=== PATIENT | male | born 1945 | race Caucasian/White ===

== ENCOUNTER 2021-03-28 08:46 | Outpatient (CLI) | payer OTHER, SELFPAY ==
--- NOTE | 2021-03-28 | US_ITS ---
WS: [id number] ULTRASOUND RENAL TECHNIQUE: Ultrasound examination of both kidneys. CLINICAL INFORMATION: CKD STAGE 3 COMPARISON: None. FINDINGS: RIGHT: Right kidney is normal in size and appearance. Echogenicity: Normal. Cortical thickness: 1.6 cm; Normal. Hydronephrosis: None. Perinephric fluid: None. Right kidney measures: 10.7 cm x 6.1 cm x 5.4 cm. LEFT: Left kidney is normal in size and appearance. Echogenicity: Normal. Cortical thickness: 1.6 cm; Normal. Hydronephrosis: None. Perinephric fluid: None. Left kidney measures: 11.4 cm x 6.1 cm x 5.7 cm. Normal visualized aorta. US/US renal BI* [id number] IMPRESSION: Normal renal ultrasound
== END 2021-03-28 08:47 | disposition home or self-care (01) ==
PROVIDERS: PCP Family Medicine; Visit Provider Registered Nurse
DX: N18.32 Chronic kidney disease, stage 3b (principal)
CPT/HCPCS: 76770

== ENCOUNTER 2021-10-03 06:27 | Outpatient (CLI) | payer OTHER, SELFPAY ==
--- NOTE | 2021-10-03 | USCV_ITS ---
Cody Dickerson Age: 75 Gender: M : 1945 Exam Date: 10/03/2021 07:07 Ordering Phys: Boubacar Carreon DO Technologist: GAYLA [place]am Location[place] [facility] [place]ication: LT THIGH CLAUDICATION WHEN WALKING MORE THAN ONE BLOCK X2 YEARS Risk Factors: NONE Previous Vascular Surgery: NONE RIGHT LEFT BP: 140.0 / BP: 142.0/ 0 0 Waveform Velocity (cm/s) Velocity (cm/s) Waveform Triphasic 136.9 Iliac Prox 144.7 Triphasic Triphasic 131.6 Iliac Mid 165.4 Triphasic Triphasic 131.6 Iliac Distal 165.4 Triphasic Triphasic 84.6 LINOLEUM PRINTER 109.2 Triphasic Triphasic 84.6 SFA Prox 100.3 Triphasic Triphasic SFA Mid Triphasic 85.4 118.3 Triphasic 56.5 SFA Dist 97.3 Triphasic Triphasic 63.1 POP 58.1 Triphasic Triphasic 119.6 CATERERS HELPER 88.9 Triphasic Triphasic 65.7 DPA 66.7 Triphasic 1.1 JUNG 1.1 FINDINGS Normal resting ABIs bilaterally Normal arterial Doppler waveforms bilaterally Near normal Doppler flow velocities bilaterally Intimal thickening and minimal plaques in the femoral and iliac arteries bilaterally CONCLUSIONS No evidence of any significant arterial obstruction, based on the above findings. Intimal thickening and minimal plaques in the iliac and femoral arteries bilaterally Dr Lydia Monsalve MD [facility] (Electronically Signed) Final Date: 03 October 2021 18:58 S
== END 2021-10-03 06:28 | disposition home or self-care (01) ==
LOC: RAD 06:29
PROVIDERS: PCP Family Medicine; Visit Provider Emergency Medicine Emergency Medical Services
DX: I73.9 Peripheral vascular disease, unspecified (principal)
CPT/HCPCS: 93925

== ENCOUNTER 2021-11-13 19:35 | Emergency (ER) | payer OTHER, MEDICARE, SELFPAY ==
[2021-11-13 19:36] VITALS: BP 160/79; PULSE 90; RESP 24; TEMP 36.4; O2SAT 90; BMI 33.9
--- NOTE | 2021-11-13 19:47 | CTR_ITS ---
PROCEDURE INFORMATION: Exam: CT Head Without Contrast Exam date and time: 11/13/2021 7:47 PM Age: 75 years old Clinical indication: Syncope and collapse; Patient HX: Near syncope; Additional info: Vertigo TECHNIQUE: Imaging protocol: Computed tomography of the head without contrast. Radiation optimization: All CT scans at this facility use at least one of these dose optimization techniques: automated exposure control; mA and/or kV adjustment per patient size (includes targeted exams where dose is matched to clinical indication); or iterative reconstruction. COMPARISON: No relevant prior studies available. RADIATION DOSE METRICS: Total DLP (mGy-cm): 944.43 FINDINGS: Brain: No hemorrhage. Mild diffuse cerebral atrophy. No significant white matter disease. No mass effect. Cerebral ventricles: No ventriculomegaly. Paranasal sinuses: Visualized sinuses are unremarkable. No fluid levels. Mastoid air cells: Visualized mastoid air cells are well aerated. Bones/joints: Unremarkable. No acute fracture. Soft tissues: Unremarkable. CT/CT head wo con* [id number] IMPRESSION: No acute intracranial abnormality.
--- NOTE | 2021-11-13 19:48 | XRR_ITS ---
PROCEDURE INFORMATION: Exam: XR Chest Exam date and time: 11/13/2021 7:48 PM Age: 75 years old Clinical indication: Shortness of breath; Additional info: SOB TECHNIQUE: Imaging protocol: XR of the chest. Views: 1 view. COMPARISON: No relevant prior studies available. FINDINGS: Lungs: Peripheral opacities within both lungs. Pleural spaces: Unremarkable. No pleural effusion. No pneumothorax. Heart/Mediastinum: Unremarkable. No cardiomegaly. Bones/joints: Unremarkable. XR/XR chest 1V portable [id number] IMPRESSION: Peripheral opacities within both lungs suspicious for multifocal pneumonia.
--- NOTE | 2021-11-13 19:48 | ECG_ITS ---
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 Measurements Intervals [place] Rate: 85 P: 54 IA: 120 QRS: 52 QRSD: 134 T: 21 QT: 390 QTc: 464 Interpretive Statements SINUS RHYTHM POSSIBLE LEFT ATRIAL ENLARGEMENT [-0.1mV P-WAVE IN V1/V2] RIGHT BUNDLE BRANCH BLOCK [120+ ms QRS DURATION, UPRIGHT V1, 40+ ms S IN I/aVL/V4/V5/V6] No previous ECG available for comparison Electronically Signed On 11-14-2021 5:35:07 MEN'S BASKETBALL COACH by Scarlet Tomlin M.D. [id number]
--- NOTE | 2021-11-13 19:51 | W.ED.SOB ---
HPI - SOB/Dyspnea General: Chief Complaint: Shortness of Breath/Dyspnea Stated Complaint: WEAKNESS/SYNCOPE Time Seen by Provider: 11/13/21 19:43 History of Present Illness: HPI Narrative: 75-year-old presents with shortness of breath and vertigo. States this started yesterday but got worse today. Denies any chest pain or headache. Denies any focal weakness numbness or tingling. Specifically reports sensation of objects spinning around him as well as shortness of breath and cough. Denies any lower extremity pain or swelling. Denies any recent head trauma or blood thinners. Review of Systems Narrative: - CONSTITUTIONAL: Denies weight loss, fever and chills. - HEENT: Denies changes in vision and hearing. - RESPIRATORY: As above - CV: Denies palpitations and CP. - GI: Denies abdominal pain, nausea, vomiting and diarrhea. - : Denies dysuria and urinary frequency. - MSK: Denies myalgia and joint pain. - SKIN: Denies rash and pruritus. - NEUROLOGICAL: As above - PSYCHIATRIC: Denies suicidal ideation Physical Exam Narrative: EXAM NARRATIVE: - GENERAL: Alert and oriented x 3. No acute distress. Well-nourished. - EYES: EOMI. Anicteric. - HENT: Atraumatic, no C-spine tenderness. Moist mucous membranes. No scleral icterus. No cervical lymphadenopathy. - LUNGS: Clear to auscultation bilaterally. No accessory muscle use. Equal lung sounds bilaterally. No respiratory distress. - CARDIOVASCULAR: Regular rate and rhythm. No murmur. No JVD. - ABDOMEN: Soft, non-tender and non-distended. Negative CVA tenderness bilaterally, no rebound or guarding, negative Chun sign. No palpable masses. - EXTREMITIES: No edema. Non-tender. - SKIN: No rashes or lesions. Warm. - NEUROLOGIC: No nystagmus, negative Leisa-Hallpike. No meningismus or focal neurological deficits. CN II-XII grossly intact. - PSYCHIATRIC: Cooperative. Appropriate mood and affect. Course Vital Signs: Vital signs: Vital Signs Temperature 97.6 F 11/13/21 19:36 Pulse Rate 85 11/13/21 19:52 Respiratory Rate 19 H 11/13/21 19:52 Blood Pressure 149/78 11/13/21 19:52 Pulse Oximetry 94 11/13/21 19:52 MDM - SOB/Dyspnea Medical Decision Making 75-year-old presents due to shortness of breath and headache. Nonfocal neurologic exam. He is COVID-19 positive which explains her symptoms. CT scan of the head does not reveal intracranial hemorrhage. D-dimer is elevated but CT of the chest does not show any signs of PE. He saturating well on room air. EKG and troponin do not reveal any sign of acute ischemia or other acute abnormality. Remainder of lab work is unremarkable. Imaging however does reveal signs of multifocal pneumonia. Prescription for azithromycin provided. At this time I believe patient would be safe for discharge and outpatient follow-up. Return precautions provided. Plan was reviewed with the patient who expressed understanding. Questions answered. Patient will follow up with PCP. Patient discharged in stable condition. Lab Data : 11/13/21 19:47 11/13/21 19:47 Labs/Radiology: Radiology Impressions Head CT 11/13/21 19:47 IMPRESSION: No acute intracranial abnormality. Chest X-Ray 11/13/21 19:48 IMPRESSION: Peripheral opacities within both lungs suspicious for multifocal pneumonia. Chest CTA 11/13/21 20:24 IMPRESSION: 1. Multifocal pneumonia. Findings are fairly typical for COVID-19 infection. Please correlate with clinical findings. 2. Bronchitis. 3. No evidence of pulmonary embolism. 4. Mild hilar and mediastinal adenopathy of uncertain significance. Laboratory Results WBC 8.1 10^3/uL (4.0-10.0) 11/13/21 19:47 RBC 5.13 10^6/uL (4.1-5.3) 11/13/21 19:47 Hgb 14.4 g/dL (11.7-16.6) 11/13/21 19:47 Hct 46.1 % (42.0-52.0) 11/13/21 19:47 MCV 89.9 fl (80-94) 11/13/21 19:47 MCH 28.1 pg (28.0-34.0) 11/13/21 19:47 MCHC 31.2 g/dL (30.0-36.0) 11/13/21 19:47 RDW 14.1 % (12.1-15.1) 11/13/21 19:47 Plt Count 376 10^3/cmm (130-400) 11/13/21 19:47 MPV 10.1 fL (7.4-10.4) 11/13/21 19:47 Neut % (Auto) 74.0 % 11/13/21 19:47 Lymph % (Auto) 12.5 % 11/13/21 19:47 [place] % (Auto) 6.2 % 11/13/21 19:47 Eos % (Auto) 3.7 % 11/13/21 19:47 Baso % (Auto) 0.7 % 11/13/21 19:47 Neut # (Auto) 5.95 10^3/uL (1.8-7.7) 11/13/21 19:47 Lymph # (Auto) 1.0 10^3/uL (0.8-4.8) 11/13/21 19:47 [place] # (Auto) 0.5 10^3/uL (0.2-0.9) 11/13/21 19:47 Eos # (Auto) 0.3 10^3/uL (0.0-0.8) 11/13/21 19:47 Baso # (Auto) 0.1 10^3/uL (0.0-0.1) 11/13/21 19:47 Nucleated RBC % (auto) 0 % 11/13/21 19:47 Nucleated RBCs # 0.0 /100WBC 11/13/21 19:47 D-Dimer 0.86 ug/mIFEU (0-0.59) H 11/13/21 19:47 Sodium 141 mmol/L (136-145) 11/13/21 19:47 Potassium 4.6 mmol/L (3.5-5.1) 11/13/21 19:47 Chloride 102 mmol/L (98-107) 11/13/21 19:47 Carbon Dioxide 24 mmol/L (22-29) 11/13/21 19:47 Anion Gap 19.6 (5-19) H 11/13/21 19:47 BUN 49 mg/dL (8-23) H 11/13/21 19:47 Creatinine 1.8 mg/dL (0.7-1.2) H 11/13/21 19:47 GFR Calculation Not Reportable 11/13/21 19:47 Glucose 104 mg/dL (65-115) 11/13/21 19:47 Calculated Osmolality 305 mOsm/kg (285-295) H 11/13/21 19:47 Calcium 9.7 mg/dL (8.5-10.5) 11/13/21 19:47 Total Bilirubin 0.5 mg/dL (0.15-1.2) 11/13/21 19:47 AST 89 U/L (0-40) H 11/13/21 19:47 ALT 99 U/L (0-41) H 11/13/21 19:47 Alkaline Phosphatase 118 IU/L (40-130) 11/13/21 19:47 Troponin T Baseline 21 ng/L (0-15) H 11/13/21 19:47 NT-Pro-B Natriuret Pep 304 pg/mL (0-450) 11/13/21 19:47 Total Protein 7.2 g/dL (6.6-8.7) 11/13/21 19:47 Albumin 4.1 g/dL (3.5-5.2) 11/13/21 19:47 Globulin 3.1 g/dL (1.3-4.6) 11/13/21 19:47 Urine Color Yellow (Yellow) 11/13/21 20:05 Urine Appearance Clear (CLEAR) 11/13/21 20:05 Urine pH 6 (5-7) 11/13/21 20:05 Ur Specific [place] 1.015 (1.005-1.030) 11/13/21 20:05 Urine Protein Neg (Negative) 11/13/21 20:05 Urine Glucose (UA) Norm (Normal) 11/13/21 20:05 Urine Ketones Negative (Negative) 11/13/21 20:05 Urine Blood Neg (Negative) 11/13/21 20:05 Urine Nitrate Negative (Negative) 11/13/21 20:05 Urine Bilirubin Neg (Negative) 11/13/21 20:05 Urine Urobilinogen 4 mg/dL (Negative) H 11/13/21 20:05 Ur Leukocyte Esterase Negative (Negative) 11/13/21 20:05 Urine RBC 0-4 /hpf (0-2) H 11/13/21 20:05 Urine WBC 0-4 /hpf (0-5) H 11/13/21 20:05 Ur Squamous Epith Cells 0-4 /hpf (0-5) H 11/13/21 20:05 Amorphous Sediment Not Reportable 11/13/21 20:05 Urine Bacteria Trace /hpf (NONE) 11/13/21 20:05 SARS-CoV-2 Ag (Rapid) Positive (Negative) H 11/13/21 20:23 Discharge Plan Discharge Patient Disposition: Home Clinical Impression: COVID-19 Condition: Stable Prescriptions: New azithromycin 500 mg tablet 500 mg PO DAILY 3 Days Qty: 3 0RF Discharge Orders: Discharge ED (Routine); Ordered 11/13/21 Ordered By: Sharath Zhang Referrals: Mamie Mcrae MD [Primary Care Provider] - Patient Instructions: COVID-19 (Coronavirus Disease 2019) (ED), Opioid Safety Coding Level of Care Code ED Call Center Operations Manager for Sada Pereira
[2021-11-13 19:52] VITALS: BP 149/78; PULSE 85; RESP 19; O2SAT 94
[2021-11-13 19:57] LABS: Basophils # 0.1 10^3/uL (0.0-0.1); Basophils % 0.7 %; Eosinophils # 0.3 10^3/uL (0.0-0.8); Eosinophils % 3.7 %; Hematocrit 46.1 % (42.0-52.0); Hemoglobin 14.4 g/dL (11.7-16.6); Lymphocytes % 12.5 %; Mean Corpuscular HGB Conc 31.2 g/dL (30.0-36.0); Mean Corpuscular Hemoglobin 28.1 pg (28.0-34.0); Mean Corpuscular Volume 89.9 fl (80-94); Mean Platelet Volume 10.1 fL (7.4-10.4); Monocytes # 0.5 10^3/uL (0.2-0.9); Monocytes % 6.2 %; Neutrophils # 5.95 10^3/uL (1.8-7.7); Nucleated Red Blood Cells % 0 %; Platelet Count 376 10^3/cmm (130-400); Red Blood Count 5.13 10^6/uL (4.1-5.3); Red Cell Distribution Width 14.1 % (12.1-15.1); White Blood Count 8.1 10^3/uL (4.0-10.0)
[2021-11-13 20:14] LABS: D Dimer 0.86 ug/mIFEU (0-0.59)
--- NOTE | 2021-11-13 20:24 | CTR_ITS ---
PROCEDURE INFORMATION: Exam: CTA Chest With Contrast Exam date and time: 11/13/2021 8:24 PM Age: 75 years old Clinical indication: Abnormal findings; Abnormal diagnostic tests; Elevated d-dimer; Shortness of breath; Patient HX: SOB with elevated d dimer. ; Additional info: Pe TECHNIQUE: Imaging protocol: Computed tomographic angiography of the chest with contrast. 3D rendering (Not supervised by radiologist): MIP and/or 3D reconstructed images were created by the technologist. Radiation optimization: All CT scans at this facility use at least one of these dose optimization techniques: automated exposure control; mA and/or kV adjustment per patient size (includes targeted exams where dose is matched to clinical indication); or iterative reconstruction. Contrast material: VISI 320; Contrast volume: 130 ml; Contrast route: INTRAVENOUS (IV); COMPARISON: CR (CHEST, ) 11/13/2021 7:58 PM RADIATION DOSE METRICS: Total DLP (mGy-cm): 1212.51 FINDINGS: Pulmonary arteries: There is no evidence of filling defects within the pulmonary arterial circulation to suggest pulmonary embolism. Aorta: There is no thoracic aortic aneurysm or dissection. Lungs: Incidental note is made of an azygos lobe. There linear bands of ground-glass opacity and consolidation or scarring in both lungs. Findings represent some nonspecific multifocal pneumonia possibly late stages of COVID-19. Correlation with clinical history and serology is suggested. There is mild bronchial wall thickening in the lower lobes more on the right than on the left which may represent some bronchitis. Pleural spaces: Unremarkable. No pneumothorax. No pleural effusion. Heart: Unremarkable. No cardiomegaly. No pericardial effusion. Lymph nodes: There is mild peribronchial adenopathy with lymph nodes measuring up to 15 x 17 mm. Some of these contain calcifications in could be related to old granulomatous disease. There is also mild subcarinal and mild bilateral hilar adenopathy. Diaphragm: There is a small hiatal hernia. Bones/joints: Unremarkable. No acute fracture. Soft tissues: Unremarkable. CT/CT angio chest PE protcl [id number] IMPRESSION: 1. Multifocal pneumonia. Findings are fairly typical for COVID-19 infection. Please correlate with clinical findings. 2. Bronchitis. 3. No evidence of pulmonary embolism. 4. Mild hilar and mediastinal adenopathy of uncertain significance.
[2021-11-13 20:27] LABS: Troponin(5th) Baseline 21 ng/L (0-15)
[2021-11-13 20:34] LABS: Alanine Aminotransferase 99 U/L (0-41); Albumin Level 4.1 g/dL (3.5-5.2); Alkaline Phosphatase 118 IU/L (40-130); Anion Gap 19.6 (5-19); Aspartate Amino Transferase 89 U/L (0-40); Blood Urea Nitrogen 49 mg/dL (8-23); Calcium 9.7 mg/dL (8.5-10.5); Carbon Dioxide 24 mmol/L (22-29); Chloride 102 mmol/L (98-107); Globulin 3.1 g/dL (1.3-4.6); Glucose 104 mg/dL (65-115); NT Pro B Type Natriuretic Pept 304 pg/mL (0-450); Osmolality Calculated 305 mOsm/kg (285-295); Potassium 4.6 mmol/L (3.5-5.1); Sodium 141 mmol/L (136-145); Total Bilirubin 0.5 mg/dL (0.15-1.2); Total Protein 7.2 g/dL (6.6-8.7)
[2021-11-13 20:51] LABS: SARS Covid-2 Antigen Positive (Negative)
[2021-11-13 20:51] LABS: Add Urine Culture? No; Bacteria Urine TRACE /hpf; Bilirubin Urine Neg (Negative); Blood Urine Neg (Negative); Glucose Urine UA Norm (Normal); Ketones Urine Negative (Negative); Leukocyte Esterase Urine Negative (Negative); Nitrate Urine Negative (Negative); Protein Urine Neg (Negative); RBC Urine 0-4 /hpf (0-2); Specific Gravity, Urine 1.015 (1.005-1.030); Squamous Epithelial Cell Urine 0-4 /hpf (0-5); Urine Appearance Clear (CLEAR); Urine Color Yellow (Yellow); Urobilinogen Urine 4 mg/dL (Negative); WBC Urine 0-4 /hpf (0-5); pH Urine 6 (5-7)
[2021-11-13] MEDS: iodixanol 320 mg/mL 100mL Btl IV ×2 (21:21→21:22)
[2021-11-13 22:57] VITALS: BP 144/81; PULSE 82; RESP 20; O2SAT 94
== END 2021-11-13 22:58 | disposition home or self-care (01) ==
PROVIDERS: Emergency Provider Emergency Medicine; PCP Family Medicine
DX: U07.1 COVID-19 (principal)
CPT/HCPCS: 36415; 70450; 71045; 71275; 80053; 81001; 83880; 84484; 85025; 85378; 87426; 93005; 99284; Q9967

== ENCOUNTER 2023-01-03 20:19 | Emergency (ER) | payer OTHER, SELFPAY ==
[2023-01-03 20:25] VITALS: BP 155/82; PULSE 104; RESP 18; TEMP 36.7; O2SAT 95
--- NOTE | 2023-01-04 00:06 | ED_ITS ---
HPI - Back Pain/Injury General: Chief Complaint: Back Pain/Injury Stated Complaint: lower back pain radiates into leg Time Seen by Provider: 01/03/23 23:37 Source: patient Mode of arrival: ambulatory Limitations: no limitations History of Present Illness: Patient presents to the emergency department tonight accompanied by friend for evaluation and treatment of low back pain and left leg pain. Patient states he noticed onset a couple of days ago but does not know of any falls or recent injury. Patient denies any previously known history of low back issues or sciatica. He indicates pain radiating down to his foot which is worse while standing. He denies any issues with bowel or bladder dysfunction and denies description of saddle paresthesias. [facility] He reports a history of high blood pressure and high cholesterol for which he takes daily medication. He states he has never been told that he cannot take NSAIDs. Review of Systems General: Reports: 10 or more systems reviewed and unremarkable except in HPI and below Physical Exam Const: COMMON NORMALS: no acute distress, patient oriented x3 and alert HENMT: COMMON NORMALS: normocephalic, atraumatic and hearing grossly normal bilaterally HEAD & SCALP: normocephalic and atraumatic Eye: COMMON NORMALS: Equal, round and reactive pupils present, EOMs intact bilaterally and conjunctivae normal CONJUNCTIVA: Yes conjunctivae normal PUPIL: Yes Equal, round and reactive pupils present Neck/C-Spine: COMMON NORMALS: full ROM and no JVD Lymph: LYMPHATIC: no lymphadenopathy noted Resp: COMMON NORMALS: normal respiratory effort, No retractions and No use of accessory muscles Cardio: COMMON NORMALS: no JVD and regular rate RATE: regular rate Extremity: NARRATIVE EXTREMITY EXAM: Patient has generalized low back pain. Indicates pain in the left mid buttock region with radiating pain felt through the left lateral thigh, through the knee, and down to his foot. There is no appreciable edema in the extremity. He is still ambulatory and weightbearing. Full flexion extension of the left hip and left knee on exam. Neuro: COMMON NORMALS: patient oriented x3 SENSORIUM/ORIENTATION: Yes alert Psych: COMMON NORMALS: mental status grossly normal, Normal thought process present, cooperative and normal affect THOUGHT PROCESS: Normal thought process present Skin: COMMON NORMALS: no rashes or lesions noted and turgor normal GENERAL SKIN EXAM: no rashes or lesions noted and turgor normal Course Vital Signs: Vital signs: Vital Signs Temperature 98.1 F 01/03/23 20:25 Pulse Rate 104 H 01/03/23 20:25 Respiratory Rate 18 01/03/23 20:25 Blood Pressure 155/82 01/03/23 20:25 Pulse Oximetry 95 01/03/23 20:25 Oxygen Delivery Me thod Room Air 01/03/23 20:25 MDM - Back Pain/Injury Medical Decision Making Patient presents to the ER today for description of left-sided low back pain and sciatica. Patient has no known injury or trauma but, after further discussion indicated that he was laying on his back for prolonged amount of time working on a car recently and also states he had been working on another vehicle around that same time. He admits to being in the same position on his back and under car for many hours. Patient indicated he has never been told he has had sciatica in the past. We went over clinical signs and symptoms of sciatica. Also indicated that treatment will be for the next several days and while he does not need to do any strenuous activity, should avoid any prolonged sitting or laying down in bed. Went over other options for at-home treatment. 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 Informational handout about sciatica provided for his at home reference. Encouraged him to discuss any recurrence or continued issues with his sciatica as he may benefit from a full back evaluation by his primary care doctor to look for degenerative lumbar conditions. Patient verbalized understanding and agreement to treatment plan. Differential Diagnosis Likely lumbar radiculopathy, sciatica, strain of lumbar region and pyelonephritis Discharge Plan Discharge Patient Disposition: Home Clinical Impression: Sciatica, Lumbar radiculopathy Condition: Stable Prescriptions: New naproxen 500 mg tablet 500 mg PO BID PRN (Reason: pain) Qty: 20 0RF Medrol (Abraham) 4 mg tablets,dose pack See Rx Instructions .ROUTE .COMPLEX Qty: 21 0RF Rx Instructions: orally per package directions Voltaren Arthritis Pain 1 % gel 4 g topical QID Qty: 100 0RF Rx Instructions: apply to area of pain in low back/buttock four times a day Discharge Orders: Discharge ED (Routine); Ordered 01/04/23 Ordered By: Jany Ludwig Referrals: Mamie Mcrae MD [Primary Care Provider] - Discharge Diet: Usual diet Discharge Activity: Increase activity as tolerated Patient Instructions: Lumbar Radiculopathy (ED), Sciatica Activity Restrictions/Additional Instructions: The description and location of your pain does sound consistent with sciatica. As we discussed, the sciatic nerve originates from your low back and travels through the mid buttock region extending down each of the legs. With degenerative and osteoarthritic changes in the low back, you may start to have pinching of the nerves or radiculopathy resulting in sciatic nerve pain down 1 or both of your extremities. This pain can affect the lateral side of your leg, the knee, or all the way down to your feet. You may notice worsening pain while standing or bearing weight. We are treating you with medication here in the emergency department tonight and have sent more medication to the pharmacy on your behalf to take for the next few days. We also recommend applying a heating pad to your low back for 15 to 20 minutes, multiple times throughout the day. While we do not want you to do any strenuous activity, we do not particularly want you to lay in bed or sit in a chair for prolonged amounts of time. Sure you are getting up and down to perform normal daily activities. Sciatica can become recurrent. If you continue to have issues with this pain you may wish to have your low back evaluated to see if you are having pinching of the nerve roots due to degeneration or changes to your low back. I recommend reaching out to your [place] primary care doctor regarding these concerns. If you develop any difficulty with your bowel or bladder function you should be seen and reevaluated through an emergency facility. Coding Level of Care Code ED Network And Threat Support Specialist for Sada Pereira
[2023-01-04] MEDS: dexamethasone 10 mg/mL INJ IM (00:17)
[2023-01-04] MEDS: ketorolac 30 mg/mL INJ IM (00:17)
[2023-01-04] MEDS: tizanidine 4 mg Tablet PO (00:17)
== END 2023-01-04 00:24 | disposition home or self-care (01) ==
PROVIDERS: Emergency Provider Physician Assistant; PCP Family Medicine
DX: M54.16 Radiculopathy, lumbar region (principal); M54.30 Sciatica, unspecified side
CPT/HCPCS: 96372; 99284; J1100; J1885

== ENCOUNTER 2023-01-05 09:27 | Observation (INO) | payer OTHER, SELFPAY ==
--- NOTE | 2023-01-05 09:33 | ECG_ITS ---
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 Measurements Intervals [place] Rate: 105 P: 146 FL: 104 QRS: 160 QRSD: 133 T: 20 QT: 322 QTc: 426 Interpretive Statements SINUS TACHYCARDIA WITH SHORT FL INTERVAL POSSIBLE LEFT ATRIAL ENLARGEMENT [-0.1mV P-WAVE IN V1/V2] RIGHT BUNDLE BRANCH BLOCK [120+ ms QRS DURATION, UPRIGHT V1, 40+ ms S IN I/aVL/V4/V5/V6] LEFT POSTERIOR FASCICULAR BLOCK [QRS AXIS > 109, INFERIOR Q] INTERPRETATION BASED ON A DEFAULT AGE OF 40 YEARS Compared to ECG 11/13/2021 19:46:34 Short [place] interval now present Left posterior fascicular block now present Sinus rhythm no longer present Electronically Signed On 01-06-2023 14:24:01 CDT by Dewayne Mojica M.D. [id number]
[2023-01-05 09:38] VITALS: BP 116/69; PULSE 103; TEMP 36.6; O2SAT 95; BMI 35.4
[2023-01-05 09:58] VITALS: BP 139/71; PULSE 101; RESP 15; O2SAT 93
--- NOTE | 2023-01-05 10:00 | XRR_ITS ---
PROCEDURE INFORMATION: Exam: XR Chest Exam date and time: 01/05/2023 10:08 AM Age: 77 years old Clinical indication: Pain; Chest pressure; Additional info: Chest pain TECHNIQUE: Imaging protocol: Radiologic exam of the chest. Views: 1 view. COMPARISON: CR XR chest 1V portable [id number] 11/13/2021 7:58 PM FINDINGS: Lungs: Unremarkable. No consolidation. Pleural spaces: Elevation of the left hemidiaphragm. No pleural effusion. No pneumothorax. Heart/Mediastinum: Unremarkable. No cardiomegaly. Bones/joints: Unremarkable. XR/XR chest 1V portable [id number] IMPRESSION: 1. No acute findings. 2. Elevated left hemidiaphragm
[2023-01-05] MEDS: nitroglycerin 0.4 mg sublingual Tablet SUBLINGUAL (10:14)
[2023-01-05] MEDS: aspirin 81 mg Chew Tablet 324 MG PO (10:14)
[2023-01-05] MEDS: sodium chloride 0.9% 500 ML 999 ML IV (10:15)
[2023-01-05] MEDS: ondansetron 2 mg/ML SDV 2 mL 4 MG IVP (10:15)
[2023-01-05 10:18] LABS: Basophils % 0.1 %; Hemoglobin 16.2 g/dL (11.7-16.6); Lymphocytes # 0.2 10^3/uL (0.8-4.8); Lymphocytes % 2.3 %; Mean Corpuscular HGB Conc 33.1 g/dL (30.0-36.0); Mean Corpuscular Hemoglobin 28.8 pg (28.0-34.0); Mean Platelet Volume 10.6 fL (7.4-10.4); Monocytes # 0.2 10^3/uL (0.2-0.9); Monocytes % 1.9 %; Neutrophils # 9.07 10^3/uL (1.8-7.7); Neutrophils % 95.2 %; Nucleated Red Blood Cells % 0 %; Platelet Count 143 10^3/cmm (130-400); Red Blood Count 5.63 10^6/uL (4.1-5.3); Red Cell Distribution Width 13.9 % (12.1-15.1); White Blood Count 9.5 10^3/uL (4.0-10.0)
[2023-01-05 10:26] LABS: D Dimer 3.75 ug/mIFEU (0-0.59)
[2023-01-05 10:34] LABS: Troponin(5th) Baseline 19 ng/L (0-15)
[2023-01-05 11:19] LABS: Alanine Aminotransferase 69 U/L (0-41); Alkaline Phosphatase 57 U/L (40-130); Anion Gap 22.2 (5-19); Aspartate Amino Transferase 78 U/L (0-40); Blood Urea Nitrogen 71 mg/dL (8-23); Calcium 9.1 mg/dL (8.5-10.5); Carbon Dioxide 21 mmol/L (22-29); Chloride 99 mmol/L (98-107); Globulin 2.6 g/dL (1.3-4.6); Glucose 137 mg/dL (65-115); Lipase 28 U/L (13-60); NT Pro B Type Natriuretic Pept 297 pg/mL (0-450); Osmolality Calculated 309 mOsm/kg (285-295); Potassium 4.2 mmol/L (3.5-5.1); Sodium 138 mmol/L (136-145); Total Bilirubin 0.8 mg/dL (0.15-1.2); Total Protein 6.6 g/dL (6.6-8.7)
--- NOTE | 2023-01-05 11:34 | W.ED.CHESTPA ---
HPI - Chest Pain General: Chief Complaint: Chest Pain Stated Complaint: chest pain Time Seen by Provider: 01/05/23 09:40 History of Present Illness: Patient is a 77-year-old man that presents to the emergency department with abrupt onset of sternal chest pain that does not radiate. He states that this pain woke him up at 0 300. Patient has some mild shortness of breath and nausea but no vomiting. Patient arrived in the emergency department normotensive and mildly tachycardic. He is afebrile. Patient has a history of hypertension high cholesterol. Associated symptoms: Reports nausea and vomiting; Deny abdominal pain, dyspnea, fever(s) or palpitations Review of Systems General: Reports: 10 or more systems reviewed and unremarkable except in HPI and below Const: Reports: change in appetite; Denies: fever(s), chills, change in weight, fatigue or malaise Eyes: Denies: change in vision, eye discomfort, eye discharge or eye redness ENMT: Denies: throat pain, enlarged tonsils, odynophagia, hoarseness, ear or mastoid pain, ear discharge, change in hearing, tinnitus, nasal discharge, nasal congestion, post nasal drip or sinus pain Card: Reports: chest pain and dyspnea on exertion; Denies: palpitations, irregular heart rhythm, edema, orthopnea or leg pain with exertion Resp: Reports: productive cough; Denies: dyspnea, non-productive cough, wheezing, stridor or chest congestion GI: Reports: nausea and vomiting; Denies: abdominal pain, dysphagia, diarrhea, constipation, bloating, GI cramping or hematochezia : Denies: flank pain, dysuria, urinary frequency, urinary urgency, urinary hesitancy, oliguria or hematuria Musc: Denies: neck pain, back pain, extremity pain, joint pain, joint swelling, joint redness, joint warmth or muscle weakness Skin/Breast: Denies: rash, pruritus, erythema, photosensitivity or new lesions Neuro: Denies: headache(s), numbness in extremities, weakness in extremities, sensory changes, lack of coordination, difficulty walking, frequent falls, dizziness, confusion, Slurred speech present, difficulty communicating thoughts, seizure-like activity or involuntary movements Endo: Denies: polyuria, polydipsia or tired all the time Darrin/Lymph: Denies: easy bruising or easy bleeding Physical Exam Const: COMMON NORMALS: no acute distress, patient oriented x3 and alert GENERAL APPEARANCE: cooperative ORIENTATION/CONSCIOUSNESS: Yes awake, Yes oriented to person, Yes oriented to place and Yes oriented to time HENMT: COMMON NORMALS: normocephalic and atraumatic HEAD & SCALP: normocephalic and atraumatic FACE & SINUS: normal facial exam MOUTH: Normal oral and palatal mucosa present THROAT: posterior oropharynx normal Eye: COMMON NORMALS: Equal, round and reactive pupils present, EOMs intact bilaterally, conjunctivae normal and no scleral icterus GENERAL EYE: appearance normal, both eyes and all related structures ALIGNMENT: Yes alignment normal PERIORBITAL: periorbital findings normal CONJUNCTIVA: Yes conjunctivae normal PUPIL: Yes Equal, round and reactive pupils present Neck/C-Spine: COMMON NORMALS: full ROM GENERAL: Yes normal visual inspection Lymph: LYMPHATIC: no lymphadenopathy noted Chest: COMMONS NORMALS: normal inspection of the chest Breast/axilla inspection: Yes no chest deformity, asymmetry, normal contours, no nodules, masses, tenderness Resp: COMMON NORMALS: normal respiratory effort, No retractions, No use of accessory muscles and clear to auscultation bilaterally EFFORT & INSPECTION: Yes able to speak in complete sentences and Yes symmetric chest movement AUSCULTATION: clear to auscultation bilaterally Cardio: COMMON NORMALS: regular rate, regular rhythm and Peripheral pulses 2+ throughout RATE: regular rate RHYTHM: regular rhythm PERIPHERAL PULSES: Peripheral pulses 2+ throughout GI: COMMON NORMALS: Normal to inspection, nondistended, normoactive bowel sounds present, Soft to palpation, non-tender and No hepatosplenomegaly present INSPECTION: Yes normal to inspection AUSCULTATION: Yes normoactive bowel sounds PALPATION: Yes Soft to palpation and Yes No hepatosplenomegaly present RECTAL EXAM: Yes deferred Extremity: COMMON NORMALS: normal to inspection GENERAL: Yes normal exam except as noted Neuro: COMMON NORMALS: patient oriented x3 SENSORIUM/ORIENTATION: Yes alert, Yes oriented to person, Yes oriented to place and Yes oriented to time CRANIAL NERVES: Yes CN normal except as noted Psych: COMMON NORMALS: mental status grossly normal, Normal thought process present, cooperative, activity/motor behavior normal, denies homicidal ideation and denies suicidal ideation THOUGHT PROCESS: Normal thought process present Skin: COMMON NORMALS: no rashes or lesions noted, no wounds and turgor normal GENERAL SKIN EXAM: no rashes or lesions noted and turgor normal Course Vital Signs: Vital signs: Vital Signs Temperature 97.8 F 01/05/23 09:38 Pulse Rate 100 01/05/23 15:40 Respiratory Rate 18 01/05/23 15:40 Blood Pressure 122/67 01/05/23 15:40 Pulse Oximetry 93 01/05/23 15:40 Oxygen Delivery Me thod Room Air 01/05/23 15:40 MDM - Chest Pain Medical Decision Making Was evaluated in the emergency department for chest pain, shortness of breath, tachycardia. Patients differential diagnoses include AMI, pneumonia, COPD exacerbation, pleural effusion, PE, Patient underwent multiple diagnostics including a chest x-ray EKG and laboratory studies. Laboratory studies included CBC, CMP, lipase, D-dimer, urinalysis. His troponin and BNP were also completed. Patient was treated with aspirin, nitro as needed every 5 and a bolus. Chest x-ray reveals no acute findings but elevated left hemidiaphragm. EKG reveals a right bundle branch block. Previous EKG in November 2022 reveals same right bundle branch block He has troponin was mildly elevated at 19 and he had a D-dimer of 3.75. His CTA chest was ordered initially but due to his creatinine, we opted for VQ scan. Unfortunately, we had to wait for supplies from [facility]. In the meantime his 2-hour delta was -1.7 The VQ scan was completed at 1700. Imaging reveals focal area of increased activity in the left hilum but is nonspecific. No evidence of pulmonary embolism. His initial troponin was 19 with follow-up 2 hours later at 17.63 and 6-hour Trope of 18.6. Patient continues to have sternal chest pain. Morphine started. I have talked with Dr. Flannery who has agreed to admit to [facility]SU for observation. And updated and orders placed. Lab Data 01/05/23 09:54 01/05/23 09:54 Radiology Impressions Chest X-Ray 01/05/23 10:00 IMPRESSION: 1. No acute findings. 2. Elevated left hemidiaphragm Pulmonary Perfusion Imaging 01/05/23 16:00 IMPRESSION: 1. Normal perfusion. No evidence of pulmonary embolism. 2. Focal area of increased activity left hilum of unclear etiology Laboratory Results WBC 9.5 10^3/uL (4.0-10.0) 01/05/23 09:54 RBC 5.63 10^6/uL (4.1-5.3) H 01/05/23 09:54 Hgb 16.2 g/dL (11.7-16.6) 01/05/23 09:54 Hct 49.0 % (42.0-52.0) 01/05/23 09:54 MCV 87.0 fl (80-94) 01/05/23 09:54 MCH 28.8 pg (28.0-34.0) 01/05/23 09:54 MCHC 33.1 g/dL (30.0-36.0) 01/05/23 09:54 RDW 13.9 % (12.1-15.1) 01/05/23 09:54 Plt Count 143 10^3/cmm (130-400) 01/05/23 09:54 MPV 10.6 fL (7.4-10.4) H 01/05/23 09:54 Neut % (Auto) 95.2 % 01/05/23 09:54 Lymph % (Auto) 2.3 % 01/05/23 09:54 [place] % (Auto) 1.9 % 01/05/23 09:54 Eos % (Auto) 0.0 % 01/05/23 09:54 Baso % (Auto) 0.1 % 01/05/23 09:54 Neut # (Auto) 9.07 10^3/uL (1.8-7.7) H 01/05/23 09:54 Lymph # (Auto) 0.2 10^3/uL (0.8-4.8) L 01/05/23 09:54 [place] # (Auto) 0.2 10^3/uL (0.2-0.9) 01/05/23 09:54 Eos # (Auto) 0.0 10^3/uL (0.0-0.8) 01/05/23 09:54 Baso # (Auto) 0.0 10^3/uL (0.0-0.1) 01/05/23 09:54 Nucleated RBC % (auto) 0 % 01/05/23 09:54 Nucleated RBCs # 0.0 /100WBC 01/05/23 09:54 D-Dimer 3.75 ug/mIFEU (0-0.59) H 01/05/23 09:54 Sodium 138 mmol/L (136-145) 01/05/23 09:54 Potassium 4.2 mmol/L (3.5-5.1) 01/05/23 09:54 Chloride 99 mmol/L (98-107) 01/05/23 09:54 Carbon Dioxide 21 mmol/L (22-29) L 01/05/23 09:54 Anion Gap 22.2 (5-19) H 01/05/23 09:54 BUN 71 mg/dL (8-23) H 01/05/23 09:54 Creatinine 2.4 mg/dL (0.7-1.2) H 01/05/23 09:54 GFR Calculation Not Reportable 01/05/23 09:54 Glucose 137 mg/dL (65-115) H 01/05/23 09:54 Calculated Osmolality 309 mOsm/kg (285-295) H 01/05/23 09:54 Calcium 9.1 mg/dL (8.5-10.5) 01/05/23 09:54 Total Bilirubin 0.8 mg/dL (0.15-1.2) 01/05/23 09:54 AST 78 U/L (0-40) H 01/05/23 09:54 ALT 69 U/L (0-41) H 01/05/23 09:54 Alkaline Phosphatase 57 U/L (40-130) 01/05/23 09:54 Troponin T Baseline 19 ng/L (0-15) H 01/05/23 09:54 Troponin T 120 Minute 17.62 ng/L (0-15) H 01/05/23 11:46 Delta Troponin T -1.38 ABS# (0-10) L 01/05/23 11:46 Troponin T Hi Sens 6Hr 18.60 ng/L (0-15) H 01/05/23 15:55 Troponin T Hi Sens 6Hr Delta -0.40 ng/L (0-12) L 01/05/23 15:55 NT-Pro-B Natriuret Pep 297 pg/mL (0-450) 01/05/23 09:54 Total Protein 6.6 g/dL (6.6-8.7) 01/05/23 09:54 Albumin 4.0 g/dL (3.5-5.2) 01/05/23 09:54 Globulin 2.6 g/dL (1.3-4.6) 01/05/23 09:54 Lipase 28 U/L (13-60) 01/05/23 09:54 Urine Color Dark yellow (Yellow) 01/05/23 11:22 Urine Appearance Clear (CLEAR) 01/05/23 11:22 Urine pH 5 (5-7) 01/05/23 11:22 Ur Specific Norman 1.020 (1.005-1.030) 01/05/23 11:22 Urine Protein Trace (Negative) 01/05/23 11:22 Urine Glucose (UA) Norm (Normal) 01/05/23 11:22 Urine Ketones Negative (Negative) 01/05/23 11:22 Urine Blood 2+ (Negative) H 01/05/23 11:22 Urine Nitrate Negative (Negative) 01/05/23 11:22 Urine Bilirubin 1+ (Negative) H 01/05/23 11:22 Urine Urobilinogen Norm mg/dL (Negative) 01/05/23 11:22 Ur Leukocyte Esterase Negative (Negative) 01/05/23 11:22 Urine RBC 0-4 /hpf (0-2) H 01/05/23 11:22 Urine WBC 5-10 /hpf (0-5) H 01/05/23 11:22 Ur Squamous Epith Cells Rare /hpf (0-5) 01/05/23 11:22 Amorphous Sediment Not Reportable 01/05/23 11:22 Urine Bacteria 2+ /hpf (NONE) H 01/05/23 11:22 Coarse Granular Casts 10-15 /lpf H 01/05/23 11:22 Urine Mucus Trace /hpf 01/05/23 11:22 Discharge Plan Discharge Patient Disposition: Admitted As Inpatient Clinical Impression: Chest pain, Atypical chest pain Condition: Stable Prescriptions: No Action aspirin 325 mg Tablet 325 mg PO Q6H PRN (Reason: Pain) amlodipine 10 mg Tablet See Rx Instructions .ROUTE .COMPLEX Rx Instructions: 20MG (2 TABS) PO QAM AND 10MG (1 TAB) PO BEDTIME simvastatin 40 mg Tablet 20 mg PO BEDTIME naproxen 500 mg tablet 500 mg PO BID PRN (Reason: pain) Qty: 20 0RF methylprednisolone [Medrol (Abraham)] 4 mg tablets,dose pack See Rx Instructions .ROUTE .COMPLEX Qty: 21 0RF Rx Instructions: orally per package directions diclofenac sodium [Voltaren Arthritis Pain] 1 % gel 4 g topical QID Qty: 100 0RF Rx Instructions: apply to area of pain in low back/buttock four times a day Referrals: Mamie Mcrae MD [Primary Care Provider] - Coding Level of Care Code ED Supervisor Of Operations for [facility] Kelli
[2023-01-05 11:56] LABS: Blood Urine 2+ (Negative); Glucose Urine UA Norm (Normal); Ketones Urine Negative (Negative); Protein Urine Trace (Negative); Urine Appearance Clear (CLEAR); Urine Color Dark Yellow (Yellow); pH Urine 5 (5-7)
[2023-01-05 11:57] LABS: Add Urine Culture? Yes; Add Urine Microscopic? YES; Bacteria Urine 2+ /hpf; Bilirubin Urine 1+ (Negative); Leukocyte Esterase Urine Negative (Negative); Mucus Urine TRACE /hpf; Nitrate Urine Negative (Negative); RBC Urine 0-4 /hpf (0-2); Squamous Epithelial Cell Urine RARE /hpf (0-5); Urobilinogen Urine Norm (Negative)
--- NOTE | 2023-01-05 12:01 | ECG_ITS ---
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 Measurements Intervals [place] Rate: 99 P: 72 OH: 120 QRS: 72 QRSD: 130 T: 45 QT: 351 QTc: 452 Interpretive Statements SINUS RHYTHM RIGHT BUNDLE BRANCH BLOCK [120+ ms QRS DURATION, UPRIGHT V1, 40+ ms S IN I/aVL/V4/V5/V6] Compared to ECG 01/05/2023 09:33:06 Sinus tachycardia no longer present Short OH interval no longer present Left posterior fascicular block no longer present Electronically Signed On 01-06-2023 14:30:02 CDT by Dewayne Mojica M.D. [id number]
[2023-01-05 12:27] LABS: Troponin 5 2HR 17.62 ng/L (0-15)
[2023-01-05 12:33] LABS: Troponin 5 2HR Delta -1.38 ABS# (0-10)
[2023-01-05 15:40] VITALS: BP 122/67; PULSE 100; RESP 18; O2SAT 93
--- NOTE | 2023-01-05 16:00 | NMR_ITS ---
PROCEDURE INFORMATION: Exam: MN Lung Ventilation and Perfusion Imaging Exam date and time: 01/05/2023 4:00 PM Age: 77 years old Clinical indication: Pain; Chest pressure; Additional info: Chest pain, tachycardia, elevated d-dimer TECHNIQUE: Imaging protocol: Nuclear pulmonary ventilation with aerosol or gas was performed followed by perfusion. Views: Ventilation acquired with multiple projections. Perfusion acquired with multiple projections. Radiopharmaceutical: 5.4 mCi Tc-99m MAA (Macroaggregated Albumin), IV. 33 mCi Tc-99m DTPA (DTPA Aerosol), Inhalation. COMPARISON: CR (CHEST, ) 01/05/2023 10:08 AM FINDINGS: Ventilation: A focal area of increased activity is present in the region of the left hilum. This finding is seen on both perfusion and ventilation images and is nonspecific. Perfusion: Normal. No perfusion defects. MN/MN pul vent and perfus* [id number] IMPRESSION: 1. Normal perfusion. No evidence of pulmonary embolism. 2. Focal area of increased activity left hilum of unclear etiology
--- NOTE | 2023-01-05 17:10 | ECG_ITS ---
[facility] Test Date: 2023-01-05 Pat Name: Cody Dickerson Department: Room: Gender: Male Cardiovascular Specialist: : 1945 Requested By: Yudelka Kramer Order Number: [id number] Reading MD: Dewayne Mojica M.D. Measurements Intervals [place] Rate: 116 P: 62 OK: 112 QRS: 184 QRSD: 126 T: 38 QT: 330 QTc: 459 Interpretive Statements SINUS TACHYCARDIA WITH SHORT OK INTERVAL INDETERMINATE AXIS RIGHT BUNDLE BRANCH BLOCK [120+ ms QRS DURATION, UPRIGHT V1, 40+ ms S IN I/aVL/V4/V5/V6] Compared to ECG 01/05/2023 11:48:02 Short OK interval now present Indeterminate axis now present Sinus rhythm no longer present Electronically Signed On 01-06-2023 14:31:13 CDT by Dewayne Mojica M.D. [id number]
[2023-01-05 17:45] VITALS: BMI 35.0
[2023-01-05] MEDS: sodium chloride 0.9% 500 ML 1000 ML IV (17:51)
--- NOTE | 2023-01-05 18:30 | PC.NURSE ---
received from er at 1735,in to room 106 via w/c.report received.pt is alert and oriented x 4.st on monitor.denies pain at present.oriented to room environment.instructed to notify staff for chest pain,sob,or for any concerns at all.pt verb understanding of instructions.
--- NOTE | 2023-01-05 19:35 | USR_ITS ---
PROCEDURE INFORMATION: Exam: US Retroperitoneal; Complete; Kidneys and Bladder Exam date and time: 01/05/2023 7:58 PM Age: 77 years old Clinical indication: Other: Eval for hydro; Additional info: Evalute hydropnephrosis, obstrcution TECHNIQUE: Imaging protocol: Real-time ultrasound of the retroperitoneum with image documentation. Complete exam focused on the kidneys and bladder. COMPARISON: US renal BI* [id number] 03/28/2021 9:09 AM FINDINGS: Right kidney: 11.1 x 5.0 x 5.4 cm. No mass, cyst, calculus, or hydronephrosis. Left kidney: 10.5 x 7.3 x 4.2 cm. No mass, cyst, calculus, or hydronephrosis. Urinary bladder: The urinary bladder is of normal size and contour. Enlarged prostate which indents the trigone of the bladder. US/US renal BI* [id number] IMPRESSION: 1. No acute findings or hydronephrosis. 2. Enlarged prostate.
--- NOTE | 2023-01-05 19:35 | ECG_ITS ---
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 Interpretive Statements NAME OF STUDY: LEXISCAN SESTAMIBI STRESS TEST INDICATION: Angina, PROCEDURE: At the baseline, the EKG revealed normal sinus rhythm with a right bundle branch block pattern.. The baseline heart was 85 bpm with a blood pressue of 112/65 mm of Hg Lexiscan was infused over a period of 20 seconds. A total of 0.4 milligrams of Lexiscan was infused. The stress phase was continued for a total of 5 minutes. Heart rate at the end of the stress phase was 92 bpm with a blood pressure 105/57 mm of Hg. The EKG at the peak infusion revealed no significant changes. Sestamibi was injected 20 seconds after the Lexiscan infusion. Heart rate at the end of the recovery phase was 92 bpm with a blood pressure of 112/46 mm of Hg. CONCLUSION: 1. No significant EKG changes with the LexiScan infusion 2. No LexiScan induced chest pain or cardiac arrhythmia 3. Normal blood pressure and heart rate response 4. Sestamibi/sestamibi perfusion scan pending; see separate report. Electronically Signed On 01-12-2023 22:47:52 CDT by Lydia Monsalve M.D. [id number]
[2023-01-05 19:37] VITALS: BP 133/76; PULSE 103; RESP 20; TEMP 37.2; O2SAT 94
--- NOTE | 2023-01-05 19:39 | P.HP_ITS ---
Providers/Chief Complaint Admitting Physician: Scarlett Ventura MD Primary Care Provider: Mamie Mcrae MD Chief Complaint: chest pain History of Present Illness Cody Dickerson is a 77 year old male with known HTN, stage 3 CKD for which he follows in [place], does not know his last creatinine. He presnts to the hospital with c/o chest pain. Pain is located in middle of the sternum, he woke up at 3 am to urinate and noticed the pain, rates it 7-8/10, sharp pain. Intermittent through the day made worse with movement, partially relived by rest. Denies past h/o similar complaints. Denies past h/o CAD. non radiating. No associated nausea, vomiting or diaphoresis. * H/o lower back strain 2 days ago when he was lifting a heavy motor at home. States that chest pain is somehwat reproducible on palpation of sternum. Denies any cough or URI symptoms. Denies heartburn Review of Systems General: Reports: 10 or more systems reviewed and unremarkable except in HPI and below Const: Denies: fever(s), chills or body aches Eyes: Denies: change in vision, blurry vision or photophobia ENMT: Reports: hoarseness; Denies: throat pain, enlarged tonsils, odynophagia or nasal congestion Card: Denies: chest pain, palpitations, irregular heart rhythm, edema, swelling of feet/ankles, lightheadedness, pre-syncope, dyspnea on exertion or orthopnea Resp: Denies: dyspnea, productive cough, non-productive cough, wheezing, stridor, pain on inspiration, change in phlegm color, hemoptysis or chest congestion GI: Denies: abdominal pain, nausea, vomiting, hematemesis, coffee ground emesis, dysphagia, heartburn, diarrhea, constipation, GI cramping, change in stool character, hematochezia or melena : Denies: flank pain, dysuria, urinary frequency, urinary urgency, urinary hesitancy or hematuria Musc: Denies: neck pain, back pain, extremity pain, joint swelling, joint warmth or deformity Neuro: Denies: headache(s), numbness in extremities, weakness in extremities, sensory changes, difficulty walking, frequent falls, dizziness, vertigo, behavioral changes, Slurred speech present or seizure-like activity Psych: Denies: anxiety, depression, suicidal ideation or homicidal ideation Endo: Denies: polyuria, polydipsia, tired all the time, cold intolerance or hot flashes Darrin/Lymph: Denies: easy bruising or easy bleeding Medications/Allergies Home Medications Medication Instructions Recorded Confirmed Last Taken Type diclofenac sodium 1 % topical gel 4 g topical QID #100 grams 01/04/23 01/05/23 Unknown Rx (Voltaren Arthritis Pain) methylprednisolone 4 mg tablets in See Rx Instructions PO .COMPLEX 01/04/23 01/05/23 01/04/23 Rx a dose pack (Medrol (Abraham)) #21 ea naproxen 500 mg tablet 500 mg PO BID PRN pain #20 tabs 01/04/23 01/05/23 01/04/23 Rx amlodipine 10 mg tablet See Rx Instructions .Route .COMPLEX 01/05/23 01/05/23 Unknown History aspirin 325 mg tablet 325 mg PO Q6H PRN Pain 01/05/23 01/05/23 Unknown History simvastatin 40 mg tablet 20 mg PO BEDTIME 01/05/23 01/05/23 Unknown History Allergies Allergy/AdvReac Type Severity Reaction Status Date / Time No Known Allergies Allergy Verified 01/05/23 10:58 Vitals/I&O/Wt Last Vital Signs Temp 98.9 F 01/05/23 19:37 Pulse 103 H 01/05/23 19:37 Resp 20 H 01/05/23 19:37 BP 133/76 01/05/23 19:37 Pulse Ox 94 01/05/23 19:37 O2 Del Method Room Air 01/05/23 19:37 01/05/23 01/05/23 01/05/23 06:59 14:59 22:59 Intake Total 500 / 500 Balance 500 / 500 Weight last 48 hrs Weight 107.757 kg Weight 108.862 kg Physical Exam Narrative: General: No acute distress, AO x3 HEENT: PERRLA, pupils bilaterally equal and reactive, pallors not present Chest: Normal vesicular breath sounds, no added sounds, equal good air entry bilaterally CVS: S1-S2 regular, no murmurs, no tachycardia, no gallops, no rubs Abdomen: Soft, nontender, no organomegaly, bowel sounds present Neuro: No focal deficits, no facial deformity, AO x3, power 5/5 in all limbs Extremities: no edema, clubbing or cyanosis Data 01/06/23 04:16 01/06/23 04:16 Other data: Launch?Image [place] [address] [place] [address] Nuclear Medicine Report Signed Patient: Cody Dickerson Unit #: [id number] : 1945 Age/Sex: 77 / M ADM Date: 01/05/23 Loc: ER Room/Bed: Attending Dr: Ordering Provider/Ordering MD: Yudelka Willard DYE MIXER Date of Service: 01/05/23 Procedure(s): NM pul vent and perfus* [id number] Accession Number(s): [id number] Report Number: [id number] PROCEDURE INFORMATION: Exam: NM Lung Ventilation and Perfusion Imaging Exam date and time: 01/05/2023 4:00 PM Age: 77 years old Clinical indication: Pain; Chest pressure; Additional info: Chest pain, tachycardia, elevated d-dimer TECHNIQUE: Imaging protocol: Nuclear pulmonary ventilation with aerosol or gas was performed followed by perfusion. Views: Ventilation acquired with multiple projections. Perfusion acquired with multiple projections. Radiopharmaceutical: 5.4 mCi Tc-99m MAA (Macroaggregated Albumin), IV. 33 mCi Tc-99m DTPA (DTPA Aerosol), Inhalation. COMPARISON: CR (CHEST, ) 01/05/2023 10:08 AM FINDINGS: Ventilation: A focal area of increased activity is present in the region of the left hilum. This finding is seen on both perfusion and ventilation images and is nonspecific. Perfusion: Normal. No perfusion defects. NM/NM pul vent and perfus* [id number] IMPRESSION: 1. ? Normal perfusion. No evidence of pulmonary embolism. 2. ? Focal area of increased activity left hilum of unclear etiology ? XR/XR chest 1V portable [id number] IMPRESSION: 1. ? No acute findings. 2. ? Elevated left hemidiaphragm ? A&P Assessment and plan (1) Chest pain: 77 M with CKD and HTN, p/w chest pain Ekg without any acute ST-T wave changes , shows sinus tachycardia at 103 bpm Trop 17--17--18 , no significant delta V/Q scan performed in ER due to elevated D dimer, negative for PE Given risk factors for cardiac disease, improvement in pain with s/l nitro, concern for anginal chest pain for which we will obtain lexiscan stress test. check lipid panel, hba1c for risk stratification Alternate differential is that of musculoskeltal chest pain from lifting heavy weights recently Attestations Medical Necessity Statement*: anticipate less than 2 midnight stay for stress test Coding Level of Care Code [facility] Chest pain R07.9
[2023-01-05] MEDS: enoxaparin 40 mg/0.4 mL Syringe SUBCUT (20:50)
[2023-01-05] MEDS: nitroglycerin 1 gm/inch oint Pkt 0.5 INCH TOPICAL (20:50)
--- NOTE | 2023-01-05 21:04 | PC.NURSE ---
Unable to do stress test on 01/06. Had VQ scan done on 01/05. Need 48 hours for decay.
[2023-01-05 22:00] VITALS: PULSE 118
[2023-01-06] VITALS (58 sets, daily range): BP systolic 93–128; BP diastolic 56–77; PULSE 66–109; RESP 9–26; TEMP 36.5–37.1; O2SAT 90–96
[2023-01-06] MEDS: nitroglycerin 1 gm/inch oint Pkt 0.5 INCH TOPICAL ×4 (01:50→19:52)
[2023-01-06 04:41] LABS: Hematocrit 44.9 % (42.0-52.0); Hemoglobin 14.5 g/dL (11.7-16.6); Mean Corpuscular HGB Conc 32.3 g/dL (30.0-36.0); Mean Corpuscular Hemoglobin 28.2 pg (28.0-34.0); Mean Corpuscular Volume 87.2 fl (80-94); Mean Platelet Volume 11.3 fL (7.4-10.4); Platelet Count 121 10^3/cmm (130-400); Red Blood Count 5.15 10^6/uL (4.1-5.3); Red Cell Distribution Width 14.4 % (12.1-15.1); White Blood Count 5.8 10^3/uL (4.0-10.0)
[2023-01-06 04:49] LABS: Estmated Average Glucose 126
[2023-01-06 04:57] LABS: Absolute Segmented Neutrophil 5.1 10/cmm (1.6-7.1); Band Neutrophils Absolute 0.1 10^3/cmm (0.0-1.2); Eosinophils 0 %; Lymphocytes 6 %; Lymphocytes Absolute 0.3 10^3/cmm (1.2-3.4); Monocytes Absolute 0.2 10^3/cmm (0.1-0.6); Segmented Neutrophils 88 %; Total Cells Counted 100 (0-100)
[2023-01-06 04:58] LABS: Absolute Neutrophil 5.2 10^3/cmm (1.4-6.5); Platelet Estimate Decreased (Normal)
[2023-01-06 05:08] LABS: Chol HDL Ratio 4.95 mg/dL (1.0-5.00); Cholesterol 94 mg/dL (0-200); HDL Cholesterol 19 mg/dL (60-100); LDL Cholesterol Calculated 43 mg/dL (50-129); LDL HDL Ratio 2.26 RATIO (0.00-3.22); NT Pro B Type Natriuretic Pept 384 pg/mL (0-450); Triglycerides 160 mg/dL (0-150)
[2023-01-06 05:43] LABS: Alanine Aminotransferase 66 U/L (0-41); Albumin Level 3.2 g/dL (3.5-5.2); Alkaline Phosphatase 47 U/L (40-130); Aspartate Amino Transferase 63 U/L (0-40); Blood Urea Nitrogen 72 mg/dL (8-23); Calcium 8.4 mg/dL (8.5-10.5); Carbon Dioxide 23 mmol/L (22-29); Chloride 102 mmol/L (98-107); Globulin 2.5 g/dL (1.3-4.6); Glucose 121 mg/dL (65-115); Osmolality Calculated 308 mOsm/kg (285-295); Sodium 138 mmol/L (136-145); Total Bilirubin 0.6 mg/dL (0.15-1.2); Total Protein 5.7 g/dL (6.6-8.7)
[2023-01-06 05:49] LABS: Anion Gap 17.5 (5-19); Potassium 4.5 mmol/L (3.5-5.1)
[2023-01-06] MEDS: ondansetron 2 mg/ML SDV 2 mL 4 MG IVP (05:59)
[2023-01-06 06:14] LABS: Thyroid Stimulating Hormone 0.39 uIU/mL (0.27-4.20)
--- NOTE | 2023-01-06 07:01 | SUR.PREOP ---
STRESS POSTPONED Notified by nuclear medicine that patient had lung VQ scan yesterday, so stress will have to be postponed until tomorrow d/t medicine from prior exam being within 24 hours. Planned for tomorrow.
--- NOTE | 2023-01-06 08:31 | USCV_ITS ---
Cody Dickerson Age: 77 Gender: M : 1945 Exam Date: 01/06/2023 16:32 Ordering Phys: Vamsi Calderon MD Technologist: Neno Mclaughlin Exam Location: [facility] – [place] Indication: chest pain BP: 124 / 67 HR: 86 Rhythm: Sinus Technical Quality: Adequate MEASUREMENTS (Male / Female) Normal Values 2D ECHO LVOT Diameter 2.3 cm LV Ejection Fraction MOD 2C 63.8 % LV Ejection Fraction 2C AL 64.7 % LA Diameter 3.2 cm LA Width 3.0 cm LA Height 4.0 cm RA Width 2.8 cm RA Height 4.2 cm Aorta at Sinotubular Diameter 2.4 cm IVC Diameter 1.9 cm M-MODE Aortic Annulus Diameter 2.8 cm LA Ao Ratio MM 1.2 MV E Point Septal Separation 0.6 cm DOPPLER AV Peak Velocity 144.7 cm/s LVOT Peak Velocity 122.0 cm/s AV Area Cont Eq vti 3.2 cm squared AV Area Cont Eq pk 3.4 cm squared MV Peak Velocity 73.0 cm/s MV Area PHT 5.8 cm squared Mitral E to A Ratio 0.7 MV E' Velocity 26.0 cm/s Mitral E to MV E' Ratio 7.0 Mitral E to LV E' Lateral Ratio 7.2 Mitral E to LV E' Septal Ratio 6.9 TR Peak Velocity 304.5 cm/s TR Peak Gradient 37.1 mmHg TR Mean Velocity 232.4 cm/s TR Mean Gradient 23.0 mmHg TR Velocity Time Integral 58.5 cm Right Atrial Pressure 3.0 mmHg Pulmonary Artery Systolic Pressu 40.1 mmHg PV Peak Velocity 158.0 cm/s RV Acceleration Time 0.1 s RV Ejection Time 0.3 s RV AcT/ET 0.4 FINDINGS Left Ventricle Left ventricle is normal in size. LV systolic function is normal with EF of 60 to 65%. No regional wall motion abnormalities are seen. Right Ventricle Normal in size and function Right Atrium Normal in size Left Atrium Normal in size Mitral Valve Structurally normal mitral valve. Mild mitral regurgitation. Aortic Valve Structurally normal aortic valve. No significant stenosis or regurgitation. Tricuspid Valve Trace tricuspid regurgitation. Insufficient TR jet to calculate RVSP Pulmonic Valve Not well visualized Pericardium Normal Aorta Normal in size IVC Appears to be normal CONCLUSIONS LV systolic function is normal with EF of 60-65% Mild mitral regurgitation Trace tricuspid regurgitation No comparison studies are available. Jorge Brizuela MD (Electronically Signed) Final Date: 07 January 2023 10:04 S
[2023-01-06] MEDS: aspirin 81 mg EC Tablet PO (08:41)
[2023-01-06] MEDS: pantoprazole DR 40 mg Tablet PO (08:41)
--- NOTE | 2023-01-06 11:29 | US_ITS ---
WS: [id number] Complete ABDOMINAL ULTRASOUND HISTORY: epigastric abdominal pain COMPARISON: None available. Liver: 16.2 cm in length. Coarsened echotexture from hepatic steatosis. No mass identified. No bile d uct dilatation. Portal Vein: Normal hepatopetal flow with monophasic waveform. Gallbladder: Normally distended gallbladder with no stones or wall thickening. CBD: 0.6 cm Pancreas: Partially obscured by bowel gas. No abnormality in the body. Right kidney: 11.4 cm x 6.3 x 4.9 cm. Cortex:1.5 cm. Normal size and echogenicity. No hydronephrosis or mass. Left kidney: 11.1 cm x 6.5 cm x 6.2 cm. Cortex: 1.9 cm. No mass, cortical thickening or hydronephrosis. Spleen: Normal size and echogenicity. Aorta and IVC: Unremarkable abdominal aorta and IVC. US/US abdomen complete* [id number] Impression: 1. Mild hepatic steatosis. 2. Normal gallbladder. 3. No hydronephrosis. 4. No bile duct dilatation.
--- NOTE | 2023-01-06 11:56 | PM.PN ---
Subjective Subjective: Patient was seen and examined this morning, he was complaining of epigastric abdominal tenderness, denied any chest pain. Medications: Medication Review Details: Generic Name Dose Route Start Last Admin Trade Name Nora PRN Reason Stop Dose Admin Aspirin 81 mg 01/06/23 09:00 01/06/23 08:41 Aspirin 81 Mg Ec Tablet PO 81 mg DAILY NORAH Administration Enoxaparin Sodium 40 mg 01/05/23 19:45 01/05/23 20:50 Enoxaparin 40 Mg /0.4 Ml Syringe SUBCUT 40 mg Q24H NORAH Administration Nitroglycerin 0.4 mg 01/05/23 10:00 01/05/23 10:14 Nitroglycerin 0. 4 Mg Sublingual Ta blet SUBLINGUAL 0.4 mg Q5M PRN Administration CHEST PAIN Nitroglycerin 0.5 inch 01/05/23 20:00 01/06/23 08:41 Nitroglycerin 1 Gm/Inch Oint Pkt TOPICAL 0.5 inch Q6H NORAH Administration Ondansetron HCl 4 mg 01/05/23 19:35 01/06/23 05:59 Ondansetron 2 Mg /Ml Sdv 2 Ml IVP 4 mg Q8H PRN Administration vomiting, or N/V if npo Pantoprazole Sodiu m 40 mg 01/06/23 09:00 01/06/23 08:[address] 40 Mg Tablet PO 40 mg DAILY NORAH Administration Vitals/I&O/Wt Last Vital Signs Temp 98.0 F 01/06/23 11:35 Pulse 92 01/06/23 11:35 Resp 19 H 01/06/23 11:35 BP 124/67 01/06/23 11:35 Pulse Ox 93 01/06/23 11:35 O2 Del Method Room Air 01/06/23 11:35 01/05/23 01/06/23 01/06/23 22:59 06:59 14:59 Intake Total 1480 / 1480 480 / 1960 240 / 240 Output Total 500 / 500 450 / 950 500 / 500 Balance 980 / 980 30 / 1010 -260 / -260 Weight last 48 hrs Weight 107.757 kg Weight 108.862 kg Physical Exam Const: COMMON NORMALS: patient oriented x3 HENMT: COMMON NORMALS: normocephalic and atraumatic HEAD & SCALP: normocephalic and atraumatic Cardio: COMMON NORMALS: regular rate, regular rhythm, S1 normal heart sound present, S2 normal heart sound present, No gallops present (Cardio), No murmurs present (Cardio), No rub (Cardio) and Peripheral pulses 2+ throughout RATE: regular rate RHYTHM: regular rhythm HEART SOUNDS: S1 normal heart sound present and S2 normal heart sound present PERIPHERAL PULSES: Peripheral pulses 2+ throughout GI: AUSCULTATION: Yes normoactive bowel sounds RECTAL EXAM: Yes deferred OTHER: Epigastric abdominal tenderness present, no guarding no rigidity no rebound tenderness Extremity: COMMON NORMALS: no clubbing, cyanosis or edema and no pedal edema Neuro: COMMON NORMALS: patient oriented x3 Data 01/06/23 04:16 01/06/23 04:16 Micro: Microbiology 01/05/23 11:22 Urine Culture - Preliminary Urine,Clean Catch A&P Assessment and plan (1) Chest pain: 77 M with CKD and HTN, p/w chest pain Ekg without any acute ST-T wave changes , shows sinus tachycardia at 103 bpm Trop 17--17--18 , no significant delta V/Q scan: negative for PE 2D echo: HbA1c:6 Lipid panel:T, total cholesterol 94, LDL 43, HDL 19 Given risk factors for cardiac disease, improvement in pain with s/l nitro, concern for anginal chest pain for which we will obtain lexiscan stress test. check lipid panel, hba1c for risk stratification Alternate differential is that of musculoskeltal chest pain from lifting heavy weights recently (2) Epigastric abdominal pain: Lipase:28 Follow ultrasound abdomen Continue Protonix for now Attestations Medical Necessity Statement*: In hospital for chest pain management and work-up. Coding Level of Care Code 25102 Diagnoses Chest pain R07.9 Epigastric abdominal pain R10.13
[2023-01-06] MEDS: perflutren protein-a microsphr 0.22 mg/mL SDV 3 mL IV (17:23)
[2023-01-06] MEDS: enoxaparin 40 mg/0.4 mL Syringe SUBCUT (19:52)
[2023-01-07] MEDS: nitroglycerin 1 gm/inch oint Pkt 0.5 INCH TOPICAL ×3 (01:27→13:33)
[2023-01-07 04:17] VITALS: BP 103/61; PULSE 82; RESP 18; TEMP 36.9; O2SAT 91
[2023-01-07 06:00] VITALS: PULSE 83
[2023-01-07 06:06] LABS: Hematocrit 43.2 % (42.0-52.0); Hemoglobin 14.1 g/dL (11.7-16.6); Mean Corpuscular HGB Conc 32.6 g/dL (30.0-36.0); Mean Corpuscular Hemoglobin 28.1 pg (28.0-34.0); Mean Corpuscular Volume 86.2 fl (80-94); Mean Platelet Volume 11.4 fL (7.4-10.4); Platelet Count 134 10^3/cmm (130-400); Red Blood Count 5.01 10^6/uL (4.1-5.3); Red Cell Distribution Width 14.4 % (12.1-15.1); White Blood Count 6.6 10^3/uL (4.0-10.0)
[2023-01-07 06:28] LABS: Alanine Aminotransferase 56 U/L (0-41); Albumin Level 3.1 g/dL (3.5-5.2); Alkaline Phosphatase 50 U/L (40-130); Anion Gap 15.3 (5-19); Aspartate Amino Transferase 41 U/L (0-40); Blood Urea Nitrogen 57 mg/dL (8-23); Calcium 8.8 mg/dL (8.5-10.5); Carbon Dioxide 24 mmol/L (22-29); Chloride 103 mmol/L (98-107); Globulin 2.9 g/dL (1.3-4.6); Glucose 101 mg/dL (65-115); Osmolality Calculated 302 mOsm/kg (285-295); Potassium 4.3 mmol/L (3.5-5.1); Sodium 138 mmol/L (136-145); Total Bilirubin 0.5 mg/dL (0.15-1.2)
--- NOTE | 2023-01-07 06:42 | PC.NURSE ---
Pt prepped for stress test, no changes to assessment for lexiscan posted yesterday.
[2023-01-07 07:24] VITALS: BP 112/46; PULSE 92
[2023-01-07] MEDS: regadenoson 0.4 Mg/5 ml Syringe IVP (07:24)
[2023-01-07 08:00] VITALS: BP 117/68; PULSE 90; RESP 18; TEMP 36.6; O2SAT 94
[2023-01-07 08:08] LABS: Absolute Segmented Neutrophil 3.9 10/cmm (1.6-7.1); Band Neutrophils Absolute 0.9 10^3/cmm (0.0-1.2); Eosinophils 1 %; Lymphocytes 13 %; Lymphocytes Absolute 1.3 10^3/cmm (1.2-3.4); Monocytes Absolute 0.5 10^3/cmm (0.1-0.6); Segmented Neutrophils 59 %; Slide Review Slide Review Perform; Total Cells Counted 100 (0-100)
[2023-01-07 08:09] LABS: Absolute Neutrophil 4.8 10^3/cmm (1.4-6.5); Pathology Refferal Yes; Platelet Estimate Normal (Normal)
[2023-01-07] MEDS: aspirin 81 mg EC Tablet PO (08:49)
[2023-01-07] MEDS: pantoprazole DR 40 mg Tablet PO (08:49)
[2023-01-07 12:00] VITALS: BP 127/69; PULSE 83; RESP 18; O2SAT 93
--- NOTE | 2023-01-07 12:00 | NMCV_ITS ---
NM senia perf SPECT r/s* [id number] Cody Dickerson Age: 77 Gender: M : 1945 Exam Date: 01/07/2023 06:38 Ordering Phys: Scarlett Ventura MD Technologist: MOLINA Addison Exam Location: [facility] Indications: CHEST PAIN STRESS TEST Please see separate stress test report in [facility] for full findings IMAGE PROTOCOL Rest/Stress 1 Lexiscan Day Radiopharmaceutical Dose (mCi) Administration Site Administered by Rest: Tc-99m 10.8 IV MOLINA Priest Sestamibi Stress:Tc-99m 32.6 IV MOLINA Priest Sestamibi Rest: 01/07/2023 60 Discovery 630 Stress: 01/07/2023 30 Discovery 630 0.4mg Lexiscan. Supine position only as patient was unable to lay prone. SPECT RESULTS Technical Quality: Excellent Raw Data Analysis: Normal Image Corrections: No attenuation or motion correction applied Summed Stress Score: 3 Summed Rest Score: 4 Summed Difference Score: 0 PERFUSION FINDINGS Small area of decreased tracer uptake was noted involving the inferolateral and apical lateral regions. No significant reversibility was noted in this region. FUNCTIONAL RESULTS (calculated via Gated SPECT) Stress Image LV EF (%): 78 Stress EDV (mL):72 TID: 0.87 Stress ESV (mL):16 FUNCTIONAL FINDINGS: Segmental wall motion analysis revealing no gross wall motion abnormalities IMPRESSIONS 1. Myocardial perfusion imaging revealing a small area of fixed defect involving the inferolateral and apical lateral region suggesting myocardial scarring versus attenuation artifact. 2. Normal LV ejection fraction 78%. 3. LV wall motion analysis revealing no gross wall motion abnormalities. 4. Normal LV volume Low probability for coronary ischemia, based on the above findings Dr Lyida Monsalve MD [facility] (Electronically Signed) Final Date: 07 January 2023 12:38 S
--- NOTE | 2023-01-07 12:08 | CT_ITS ---
WS: [id number] CT ABDOMEN AND PELVIS NONCONTRAST HISTORY: Abdominal pain, abnormal plasma cells on PBS TECHNIQUE: Imaging performed through the abdomen and pelvis. Coronal and sagittal reformats are submi tted. All CT scans at [facility] use at least one of these dose optimization techniques: auto mated exposure control; mA and/or kV adjustment per patient size (includes targeted exams where dose is matched to clinical indication); or iterative reconstruction. DLP: 1079.13 mGy.cm COMPARISON: RIGHT upper quadrant ultrasound 01/06/2023 Lower thorax: Normal size heart. Small hiatal hernia. Liver: Normal size liver. No mass or bile duct dilatation. Gallbladder: Gallbladder is not distended but there is a small amount of inflammation in the gallblad mati fossa and surrounding the gallbladder. Pancreas: Normal size and attenuation. Normal pancreatic duct. No pancreatitis or mass. Spleen: Normal size at 12.3 cm. Adrenal glands: Normal. No mass. Right kidney: Mild perinephric stranding. No obstruction. Left kidney: Mild perinephric stranding with no obstruction. Aorta: Mild atherosclerosis abdominal aorta with no aneurysm. No free fluid, intraperitoneal air or significant lymphadenopathy. GI tract: Normally distended stomach. Beginning in the antrum and pylorus of the stomach there is cir cumferential wall thickening extending through the third portion of the duodenum. There is marked wal l thickening in the second portion of the duodenum with adjacent inflammation. This is contiguous wit h the inflammation surrounding the gallbladder. Favor the inflammation is most likely from the duoden um secondarily involving the gallbladder. No fluid collection or abscess. No perforation. No small marine wel obstruction. There is a duodenal diverticulum near the pancreatic head. Prior appendectomy. Numer ous diverticula in the distal colon. Abdominal wall: Ventral abdominal wall hernia. Hernia contains fat only. There are a few foci of air in the abdominal wall which are probably injection sites. Pelvis: Enlarged prostate extending into the bladder. Osseous structures: Advanced degenerative changes throughout the lumbar spine. No lytic lesions ident ified within the osseous structures. CT/CT abdomen pelvis wo con [id number] IMPRESSION: 1. Acute inflammatory process in the RIGHT upper quadrant. Most likely the thomas mirna site is the duodenum where there is wall thickening, edema and asymmetric narrowing of the lumen. Secondary extension of the inflammation to involve the gallbladder. Upper endoscopy may be necessary. Differential includes acute duod enitis, acute duodenal ulcer and underlying neoplasm. 2. There is an additional duodenal diverticulum versus ulcer. 3. No splenomegaly. 4. Mild bilateral perinephric stranding. 5. Distal colonic diverticulosis without acute diverticulitis. 6. Prior appendectomy.
[2023-01-07 14:00] VITALS: PULSE 88
--- NOTE | 2023-01-07 15:22 | PM.DCS ---
Discharge Providers Date of Admission: 01/05/23 19:35 Date of Discharge: January 07, 2023 Attending Provider at Admission: Scarlett Ventura MD Attending Provider at Discharge: Vamsi Calderon MD Primary Care Provider: Mamie Mcrae MD Diagnoses at Discharge Discharge Diagnosis (1) Chest pain: Status: Acute (2) Epigastric abdominal pain: Status: Acute Reason for Visit Reason for Visit: chest pain Hospital Course Hospital Course 77 year old male with known HTN, stage 3 CKD for which he follows in [place], does not know his last creatinine.He initially presented to the hospital for the evaluation and work-up of chest pain, patient underwent nuclear stress test which failed to show any definitive ischemia Myocardial perfusion imaging revealing a small area of fixed defect ?involving the inferolateral and apical lateral region suggesting myocardial scarring versus attenuation artifact, 2D echo done during the hospital stay showed: LV systolic function is normal with EF of 60-65%,?Mild mitral regurgitation,?Trace tricuspid regurgitation.Patient also got VQ scan during the hospital stay which was negative for PE.Chest pain is noncardiac.Later during the hospital stay patient was also complaining of epigastric discomfort: Ended up getting CT abdomen and pelvis without contrast which showed Acute inflammatory process in the RIGHT upper quadrant. Most likely the primary site is the duodenum where there is wall thickening, edema and asymmetric narrowing of the lumen. Secondary extension of the inflammation to involve the gallbladder. Upper endoscopy may be necessary. Differential includes acute duodenitis, acute duodenal ulcer and underlying neoplasm. There is an additional duodenal diverticulum versus ulcer. No splenomegaly.Mild bilateral perinephric stranding. In view of CT findings patient was discharged on p.o. metronidazole as well as ciprofloxacin for duodenitis, patient has also been started on p.o. Protonix twice daily 40.patient has also been made an appointment with Dr. Deleon as outpatient for EGD, to rule out any possible malignancy. Peripheral blood smear reviewed during the hospital stay showed rare plasma cells and plasmacytoid lymphocytes, leukemia lymphoma panel has been ordered, along with SPEP UPEP,KLR, kappa free light chain urine, flow cytometry, patient is asked to see oncology as outpatient. 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 He is being discharged in stable condition to home. Physical Exam Const: COMMON NORMALS: patient oriented x3 HENMT: COMMON NORMALS: normocephalic and atraumatic HEAD & SCALP: normocephalic and atraumatic Cardio: COMMON NORMALS: regular rate, regular rhythm, S1 normal heart sound present, S2 normal heart sound present, No gallops present (Cardio), No murmurs present (Cardio), No rub (Cardio) and Peripheral pulses 2+ throughout RATE: regular rate RHYTHM: regular rhythm HEART SOUNDS: S1 normal heart sound present and S2 normal heart sound present PERIPHERAL PULSES: Peripheral pulses 2+ throughout GI: AUSCULTATION: Yes normoactive bowel sounds RECTAL EXAM: Yes deferred Extremity: COMMON NORMALS: no clubbing, cyanosis or edema and no pedal edema Neuro: COMMON NORMALS: patient oriented x3 Discharge Data Studies Completed and Pending Completed Studies During Hospitalization Category Date Time Status Cardiac Stress Test MIBI [Sestamibi Stress Test Request Exams 01/05/23 19:35 Draft ] Routine XR chest 1V portable [id number] Stat Exams 01/05/23 10:00 Completed NM senia perf SPECT r/s* [id number] Routine Nuc Med 01/07/23 12:00 Completed NM pulmonary ventilation and perfusion [NM pul vent and Nuc Med 01/05/23 16:00 Completed perfus* [id number]] Stat CV. echo wo/w contrast [id number] Routine Ultrasound 01/06/23 08:31 Completed US abdomen complete* [id number] Routine Ultrasound 01/06/23 11:29 Completed US renal BI* [id number] Routine Ultrasound 01/05/23 19:35 Completed Pending at discharge Category Date Time Status CT abdomen pelvis wo con [id number] Routine Cat Scan 01/07/23 12:08 Taken CBC Auto Diff [Complete Blood Count w/Auto] AM LABS Lab 01/08/23 04:00 Ordered CD57, CD3, CD8, Flow Cytometry Routine Lab 01/07/23 13:00 Received CMP [Comprehensive Metabolic Panel] AM LABS Lab 01/08/23 04:00 Ordered KAPPA/LAMBDA LIGHT FREE SERUM Routine Lab 01/07/23 13:00 Received [place] Free Light Chains Urine Routine Lab 01/07/23 13:32 Received SPEP [Total Protein Electrophoresis] Routine Lab 01/07/23 13:00 Received Urine Protein Electrop Random Routine Lab 01/07/23 13:32 Received Radiology Impressions Chest X-Ray 01/05/23 10:00 IMPRESSION: 1. No acute findings. 2. Elevated left hemidiaphragm Pulmonary Perfusion Imaging 01/05/23 16:00 IMPRESSION: 1. Normal perfusion. No evidence of pulmonary embolism. 2. Focal area of increased activity left hilum of unclear etiology Renal Ultrasound 01/05/23 19:35 IMPRESSION: 1. No acute findings or hydronephrosis. 2. Enlarged prostate. Abdomen Ultrasound 01/06/23 11:29 Impression: 1. Mild hepatic steatosis. 2. Normal gallbladder. 3. No hydronephrosis. 4. No bile duct dilatation. Laboratory Results WBC 6.6 10^3/uL (4.0-10.0) 01/07/23 05:17 RBC 5.01 10^6/uL (4.1-5.3) 01/07/23 05:17 Hgb 14.1 g/dL (11.7-16.6) 01/07/23 05:17 Hct 43.2 % (42.0-52.0) 01/07/23 05:17 MCV 86.2 fl (80-94) 01/07/23 05:17 MCH 28.1 pg (28.0-34.0) 01/07/23 05:17 MCHC 32.6 g/dL (30.0-36.0) 01/07/23 05:17 RDW 14.4 % (12.1-15.1) 01/07/23 05:17 Plt Count 134 10^3/cmm (130-400) 01/07/23 05:17 MPV 11.4 fL (7.4-10.4) H 01/07/23 05:17 Neut % (Auto) 95.2 % 01/05/23 09:54 Lymph % (Auto) Not Reportable 01/07/23 05:17 [place] % (Auto) Not Reportable 01/07/23 05:17 Eos % (Auto) 0.0 % 01/05/23 09:54 Baso % (Auto) 0.1 % 01/05/23 09:54 Neut # (Auto) 9.07 10^3/uL (1.8-7.7) H 01/05/23 09:54 Lymph # (Auto) Not Reportable 01/07/23 05:17 [place] # (Auto) Not Reportable 01/07/23 05:17 Eos # (Auto) 0.0 10^3/uL (0.0-0.8) 01/05/23 09:54 Baso # (Auto) 0.0 10^3/uL (0.0-0.1) 01/05/23 09:54 Nucleated RBC % (auto) 0 % 01/05/23 09:54 Total Counted 100 (0-100) 01/07/23 05:17 Atypical Lymphs % 6.0 % (0-5) H 01/07/23 05:17 Absolute Neutrophils 4.8 10^3/cmm (1.4-6.5) 01/07/23 05:17 Segmented Neutrophils 59 % 01/07/23 05:17 Abs Segm Neuts (Man) 3.9 10/cmm (1.6-7.1) 01/07/23 05:17 Band Neutrophils 13.0 % 01/07/23 05:17 Abs Band Neuts (Man) 0.9 10^3/cmm (0.0-1.2) 01/07/23 05:17 Absolute Lymphocytes 1.3 10^3/cmm (1.2-3.4) 01/07/23 05:17 Lymphocytes (Manual) 13 % 01/07/23 05:17 Monocytes (Manual) 8.0 % 01/07/23 05:17 Absolute Monocytes 0.5 10^3/cmm (0.1-0.6) 01/07/23 05:17 Eosinophils (Manual) 1 % 01/07/23 05:17 Absolute Eosinophils 0.0 10^3/cmm (0.0-0.7) 01/07/23 05:17 Basophils (Manual) 0.0 % 01/07/23 05:17 Absolute Basophils 0.0 10^3/cmm (0.0-0.2) 01/07/23 05:17 Nucleated RBCs 1.0 /100WBC (0-1) 01/07/23 05:17 Nucleated RBCs # 0.0 /100WBC 01/05/23 09:54 Pathologist Review Yes 01/07/23 05:17 Blast Cells Aeroplane Pilot 01/07/23 05:17 Platelet Estimate Normal (Normal) 01/07/23 05:17 D-Dimer 3.75 ug/mIFEU (0-0.59) H 01/05/23 09:54 Sodium 138 mmol/L (136-145) 01/07/23 05:17 Potassium 4.3 mmol/L (3.5-5.1) 01/07/23 05:17 Chloride 103 mmol/L (98-107) 01/07/23 05:17 Carbon Dioxide 24 mmol/L (22-29) 01/07/23 05:17 Anion Gap 15.3 (5-19) 01/07/23 05:17 BUN 57 mg/dL (8-23) H 01/07/23 05:17 Creatinine 1.8 mg/dL (0.7-1.2) H 01/07/23 05:17 GFR Calculation Not Reportable 01/07/23 05:17 Glucose 101 mg/dL (65-115) 01/07/23 05:17 Estimat Average Glucose 126 01/06/23 04:16 Hemoglobin A1c 6.0 % (4.0-6.0) 01/06/23 04:16 Calculated Osmolality 302 mOsm/kg (285-295) H 01/07/23 05:17 Calcium 8.8 mg/dL (8.5-10.5) 01/07/23 05:17 Total Bilirubin 0.5 mg/dL (0.15-1.2) 01/07/23 05:17 AST 41 U/L (0-40) H 01/07/23 05:17 ALT 56 U/L (0-41) H 01/07/23 05:17 Alkaline Phosphatase 50 U/L (40-130) 01/07/23 05:17 Troponin T Baseline 19 ng/L (0-15) H 01/05/23 09:54 Troponin T 120 Minute 17.62 ng/L (0-15) H 01/05/23 11:46 Delta Troponin T -1.38 ABS# (0-10) L 01/05/23 11:46 Troponin T Hi Sens 6Hr 18.60 ng/L (0-15) H 01/05/23 15:55 Troponin T Hi Sens 6Hr Delta -0.40 ng/L (0-12) L 01/05/23 15:55 NT-Pro-B Natriuret Pep 384 pg/mL (0-450) 01/06/23 04:16 Total Protein 6.0 g/dL (6.6-8.7) L 01/07/23 05:17 Albumin 3.1 g/dL (3.5-5.2) L 01/07/23 05:17 Globulin 2.9 g/dL (1.3-4.6) 01/07/23 05:17 Triglycerides 160 mg/dL (0-150) H 01/06/23 04:16 Cholesterol 94 mg/dL (0-200) 01/06/23 04:16 LDL Cholesterol, Calc 43 mg/dL (50-129) L 01/06/23 04:16 HDL Cholesterol 19 mg/dL (60-100) L 01/06/23 04:16 LDL/HDL Ratio 2.26 RATIO (0.00-3.22) 01/06/23 04:16 Cholesterol/HDL Ratio 4.95 mg/dL (1.0-5.00) 01/06/23 04:16 Lipase 28 U/L (13-60) 01/05/23 09:54 TSH 0.39 uIU/mL (0.27-4.20) 01/06/23 04:16 Urine Color Dark yellow (Yellow) 01/05/23 11:22 Urine Appearance Clear (CLEAR) 01/05/23 11:22 Urine pH 5 (5-7) 01/05/23 11:22 Ur Specific [place] 1.020 (1.005-1.030) 01/05/23 11:22 Urine Protein Trace (Negative) 01/05/23 11:22 Urine Glucose (UA) Norm (Normal) 01/05/23 11:22 Urine Ketones Negative (Negative) 01/05/23 11:22 Urine Blood 2+ (Negative) H 01/05/23 11:22 Urine Nitrate Negative (Negative) 01/05/23 11:22 Urine Bilirubin 1+ (Negative) H 01/05/23 11:22 Urine Urobilinogen Norm mg/dL (Negative) 01/05/23 11:22 Ur Leukocyte Esterase Negative (Negative) 01/05/23 11:22 Urine RBC 0-4 /hpf (0-2) H 01/05/23 11:22 Urine WBC 5-10 /hpf (0-5) H 01/05/23 11:22 Ur Squamous Epith Cells Rare /hpf (0-5) 01/05/23 11:22 Amorphous Sediment Not Reportable 01/05/23 11:22 Urine Bacteria 2+ /hpf (NONE) H 01/05/23 11:22 Coarse Granular Casts 10-15 /lpf H 01/05/23 11:22 Urine Mucus Trace /hpf 01/05/23 11:22 Vitals Last Vital Signs Temp 97.8 F 01/07/23 08:00 Pulse 83 01/07/23 12:00 Resp 18 01/07/23 12:00 BP 127/69 01/07/23 12:00 Pulse Ox 93 01/07/23 12:00 O2 Del Method Room Air 01/07/23 12:00 Discharge Plan Discharge Patient Disposition: Home Condition: Stable Prescriptions: New pantoprazole 40 mg Tablet,Delayed Release (Dr/Ec) 40 mg PO BIDWM 30 Days Qty: 60 2RF amlodipine 5 mg tablet 5 mg PO DAILY 30 Days Qty: 30 1RF metronidazole 500 mg tablet 500 mg PO Q12H 10 Days Qty: 20 0RF ciprofloxacin HCl 500 mg tablet 500 mg PO DAILY 10 Days Qty: 10 0RF acetaminophen 325 mg Tablet 650 mg PO Q6H PRN (Reason: Mild/Mod Pain Or Temp >/= 101) 14 Days Qty: 25 0RF Continued simvastatin 40 mg Tablet 20 mg PO BEDTIME diclofenac sodium [Voltaren Arthritis Pain] 1 % gel 4 g topical QID Qty: 100 0RF Rx Instructions: apply to area of pain in low back/buttock four times a day Discontinued aspirin 325 mg Tablet 325 mg PO Q6H PRN (Reason: Pain) amlodipine 10 mg Tablet See Rx Instructions .ROUTE .COMPLEX Rx Instructions: 20MG (2 TABS) PO QAM AND 10MG (1 TAB) PO BEDTIME naproxen 500 mg tablet 500 mg PO BID PRN (Reason: pain) Qty: 20 0RF methylprednisolone [Medrol (Abraham)] 4 mg tablets,dose pack See Rx Instructions .ROUTE .COMPLEX Qty: 21 0RF Rx Instructions: orally per package directions Discharge Orders: Discharge Order (Routine); Ordered 01/07/23 Ordered By: Vamsi Calderon Referrals: Abner Deleon DO [Physician] - 01/29/23 3:15 pm Mamie Mcrae MD [Primary Care Provider] - (Please call for an follow-up appointment with Mamie Mcrae in 4 to 7 days. ) Arsen Day MD [Hospitalist] - 2 weeks ([facility] treatment center has been contacted with your discharge information. If you haven't heard from them within 24 hours. Please call ) Patient Instructions: Opioid Safety Discharge Attestations Time Spent in Discharge Care*: greater than 30 min Quality Metrics Clinical Quality Measures [ No reported AMI, CVA or VTE this stay] Coding Level of Care Code Acute Code for Chg Fwd Diagnoses Chest pain R07.9 Epigastric abdominal pain R10.13
--- NOTE | 2023-01-07 18:28 | PC.NURSE ---
Patient discharged at 18:21. IV discontinued. Patient given verbal and written education, patient verbalized understanding. Patient taken out via wheelchair, left facility with brother.
[2023-01-08 13:48] LABS: Creatinine, Random Urine 105 mg/dL (20-320); Protein, Total, Random 26 mg/dL (5-25); Protein/Creatinine Ratio 0.248 (0.025-0.148); Protein/Creatinine Ratio 248 mg/g creat (25-148)
[2023-01-08 14:34] LABS: PROTEIN, TOTAL 5.7 g/dL (6.1-8.1)
[2023-01-08 15:11] LABS: KAPPA LIGHT CHAIN, FREE, SERUM 51.3 mg/L (3.3-19.4); KAPPA/LAMBDA LIGHT CHAINS FREE 1.35 (0.26-1.65); LAMBDA LIGHT CHAIN, FREE, SERU 37.9 mg/L (5.7-26.3)
[2023-01-09 09:36] LABS: Leukemia Profile (BBPL) See Report; Lymphoma Profile (BBPL) See Report
[2023-01-09 09:50] LABS: Albumin,Urine Random 21 %; Alpha-1-Globulins Urine Random 7 %; Alpha-2-Globulins Urine Random 28 %; Beta-Globulin,Urine Random 19 %; Gamma Globulin,Urine Random 25 %
[2023-01-09 15:21] LABS: ALBUMIN 2.8 g/dL (3.8-4.8); ALPHA 1 GLOBULIN 0.6 g/dL (0.2-0.3); BETA 1 GLOBULIN 0.4 g/dL (0.4-0.6); BETA 2 GLOBULIN 0.4 g/dL (0.2-0.5); GAMMA GLOBULIN 0.6 g/dL (0.8-1.7)
[2023-01-11 02:35] LABS: CD57 +/CD3 - Absolute 394 cells/uL (20-258); CD57 +/CD3 - of % Lymphs 15 % (1-10); CD57 +/CD3 - of % WBC 5 % (1-4); CD57 +/CD3-/CD8 -of $% Lymphs 12 % (1-5); CD57 +/CD3-/CD8 -of %WBC 4 % (1-3); CD57 +/CD3-/CD8 -of Absolute 315 cells/uL (20-114); CD57 +/CD8 -of %WBC 4 % (1-4); CD57 +/CD8 -of Lymphs 12 % (1-15); CD57 +/CD8 Absolute 315 cells/uL (20-248)
[2023-01-14 13:44] LABS: Kappa Free Light Chains Urine 172.59 mg/L (<=32.90)
== END 2023-01-07 18:21 | disposition home or self-care (01) ==
LOC: ER 17:02 → CSU 17:30
PROVIDERS: Admitting Provider Student in an Organized Health Care Education/Training Program; Emergency Provider Nurse Practitioner; PCP Family Medicine; Visit Provider Internal Medicine
DX: R07.9 Chest pain, unspecified (principal); R10.13 Epigastric pain; I12.9 Hypertensive chronic kidney disease with stage 1 through stage 4 chronic kidney disease, or unspecified chronic kidney disease; N18.30 Chronic kidney disease, stage 3 unspecified; E78.00 Pure hypercholesterolemia, unspecified; I34.0 Nonrheumatic mitral (valve) insufficiency; I45.2 Bifascicular block; Z79.82 Long term (current) use of aspirin
CPT/HCPCS: 36415; 51798; 71045; 74176; 76700; 76770; 78014; 78452; 80053; 80061; 80503; 81001; 82570; 83036; 83690; 83880; 83883; 84155; 84156; 84165; 84166; 84443; 84484; 85007; 85025; 85378; 86335; 86356; 86359; 87086; 88184; 88185; 93005; 93017; 96361; 96372; 96374; 96376; 99285; A9270; A9500; A9540; A9567; C8929; G0378; J1650; J2405; J2785; J7040; Q9956

== ENCOUNTER → 2023-01-31 13:03 | Outpatient (BNVA) | payer MEDICARE, OTHER, SELFPAY | PROVIDERS: PCP Emergency Medicine Emergency Medical Services; Visit Provider Surgery | DX: R10.13 Epigastric pain (principal) | CPT/HCPCS: 99203 ==

== ENCOUNTER → 2023-03-04 14:34 | Outpatient (BNVA) | payer OTHER, SELFPAY | PROVIDERS: PCP Emergency Medicine Emergency Medical Services; Visit Provider Internal Medicine Pulmonary Disease | DX: R93.89 Abnormal findings on diagnostic imaging of other specified body structures (principal); R09.89 Other specified symptoms and signs involving the circulatory and respiratory systems; Z86.16 Personal history of COVID-19; N18.30 Chronic kidney disease, stage 3 unspecified; R59.0 Localized enlarged lymph nodes | CPT/HCPCS: 99204 ==

== ENCOUNTER 2023-03-26 08:13 | Oncology outpatient (recurring) (ONCR) | payer OTHER, SELFPAY ==
[2023-03-26 10:14] LABS: Basophils # 0.1 10^3/uL (0.0-0.1); Basophils % 0.9 %; Eosinophils # 0.2 10^3/uL (0.0-0.8); Eosinophils % 3.5 %; Hematocrit 46.8 % (42.0-52.0); Hemoglobin 15.3 g/dL (11.7-16.6); Lymphocytes # 1.5 10^3/uL (0.8-4.8); Lymphocytes % 23.2 %; Mean Corpuscular HGB Conc 32.7 g/dL (30.0-36.0); Mean Corpuscular Hemoglobin 29.2 pg (28.0-34.0); Mean Corpuscular Volume 89.3 fl (80-94); Mean Platelet Volume 9.2 fL (7.4-10.4); Monocytes # 0.6 10^3/uL (0.2-0.9); Monocytes % 8.5 %; Neutrophils # 4.12 10^3/uL (1.8-7.7); Neutrophils % 63.4 %; Nucleated Red Blood Cells % 0 %; Platelet Count 224 10^3/cmm (130-400); Red Blood Count 5.24 10^6/uL (4.1-5.3); Red Cell Distribution Width 14.2 % (12.1-15.1); White Blood Count 6.5 10^3/uL (4.0-10.0)
[2023-03-26 10:34] LABS: Alanine Aminotransferase 13 U/L (0-41); Albumin Level 4.4 g/dL (3.5-5.2); Alkaline Phosphatase 64 U/L (40-130); Anion Gap 14.2 (5-19); Aspartate Amino Transferase 12 U/L (0-40); Blood Urea Nitrogen 19 mg/dL (8-23); C Reactive Protein 4.5 mg/L (0.0-4.9); Carbon Dioxide 26 mmol/L (22-29); Chloride 104 mmol/L (98-107); Globulin 2.6 g/dL (1.3-4.6); Glucose 106 mg/dL (65-115); Osmolality Calculated 293 mOsm/kg (285-295); Potassium 4.2 mmol/L (3.5-5.1); Sodium 140 mmol/L (136-145); Total Bilirubin 0.6 mg/dL (0.15-1.2)
[2023-03-26 11:17] LABS: Erythrocyte Sedimentation Rate 11 mm/hr (0-10)
[2023-03-26 11:29] LABS: Immunoglobulin IGA 305 mg/dL (70-400); Immunoglobulin IGG 842 mg/dL (700-1600)
[2023-03-26 11:40] LABS: LAB Peripheral Smear Sent for Review
[2023-03-26 11:43] LABS: Immunoglobulin IGM 24 mg/dL (40-230)
[2023-03-26 11:44] LABS: Lactate Dehydrogenase 214 U/L (135-225)
[2023-03-27 13:10] LABS: PROTEIN, TOTAL 7.1 g/dL (6.1-8.1)
[2023-03-27 15:40] LABS: ALBUMIN 4.4 g/dL (3.8-4.8); ALPHA 1 GLOBULIN 0.3 g/dL (0.2-0.3); ALPHA 2 GLOBULIN 0.8 g/dL (0.5-0.9); BETA 1 GLOBULIN 0.5 g/dL (0.4-0.6); BETA 2 GLOBULIN 0.4 g/dL (0.2-0.5); GAMMA GLOBULIN 0.8 g/dL (0.8-1.7)
[2023-03-27 16:40] LABS: KAPPA LIGHT CHAIN, FREE, SERUM 23.9 mg/L (3.3-19.4); KAPPA/LAMBDA LIGHT CHAINS FREE 1.32 (0.26-1.65); LAMBDA LIGHT CHAIN, FREE, SERU 18.1 mg/L (5.7-26.3)
== END 2023-04-14 23:59 | disposition home or self-care (01) ==
PROVIDERS: PCP Emergency Medicine Emergency Medical Services; Visit Provider Internal Medicine Medical Oncology
DX: D47.2 Monoclonal gammopathy (principal)
CPT/HCPCS: 36415; 80053; 82784; 83615; 83883; 84155; 84165; 85025; 85651; 86140; 86334; 99204

== ENCOUNTER 2023-03-27 07:06 | Outpatient (CLI) | payer OTHER, SELFPAY ==
--- NOTE | 2023-03-27 08:00 | CTR_ITS ---
PROCEDURE INFORMATION: Exam: CT Chest Without Contrast; Diagnostic Exam date and time: 03/27/2023 7:38 AM Age: 77 years old Clinical indication: Left-sided and other: Abdominal pain; Prior surgery; Surgery date: 6+ months; Surgery type: Appy; Patient HX: Abnormal plasma cells on pbs, abd pain; Additional info: F/u CT.No history of trauma or recent surgery is provided. TECHNIQUE: Imaging protocol: Diagnostic computed tomography of the chest without contrast. 277image(s) are provided. Radiation optimization: All CT scans at this facility use at least one of these dose optimization techniques: automated exposure control; mA and/or kV adjustment per patient size (includes targeted exams where dose is matched to clinical indication); or iterative reconstruction. Other technique: Axial images are available with sagittal and coronal reconstruction views. Automated dose exposure control is utilized. The DLP is 556.0. REPORTING DATA: Count of CT and Cardiac NM exams in prior 12 months: This patient has received 2 known CTs and 0 known cardiac nuclear medicine studies in the 12 months prior to the current study. COMPARISON: CT angio chest PE protcl [id number] 11/13/2021 9:14 PM RADIATION DOSE METRICS: Total DLP (mGy-cm): 556 FINDINGS: Thyroid: The thyroid is slightly enlarged and heterogeneous right lobe more so than left. Trachea: The central airways are patent. Lungs: There is linear subsegmental atelectasis versus post inflammatory scarring demonstrated.No lobar consolidation is appreciated.There is improved lung volume and aeration. There are chronic subcentimeter granulomatous changes present for example including similar lateral basal right lower lobe. There is also minimal apical scarring similar. There is some slight fissure thickening similar overall. Pleural spaces: No pneumothorax or pleural effusion is appreciated. Heart: No significant pericardial fluid collection is appreciated. Coronary arteries: There are coronary arterial calcifications present. Lymph nodes: There are some borderline mediastinal and hilar lymph nodes present relatively similar overall for example including retrocaval paratracheal space measuring approximately 2.1 x 1.3 cm similar overall. There are some calcifications present. Vasculature: No interval aneurysmal dilatation is appreciated. Stomach and bowel: There is a small sliding-type hiatal hernia demonstrated with slight gastroesophageal fold thickening. There is some duodenal C-loop diverticular averaging. Intraperitoneal space: There is a similar otherwise interval appearance of the included intraperitoneal space, upper abdominal structures. Bones/joints: Osseous alignment is maintained.No interval displaced fracture or dislocation is appreciated.There is slightly decreased bone mineralization overall. There is some bulky osteophytosis along with some chronic disc space degeneration overall. Soft tissues: No radiopaque foreign body or subcutaneous emphysema is appreciated. Other findings: There is some motion artifact present. No other significant interval changes are appreciated. CT/CT chest wo con [id number] IMPRESSION: 1. There are chronic granulomatous changes overall with no interval lobar consolidation or cardiac decompensation. Aeration is improved as compared to the previous study with resolved atypical inflammatory appearance. 2. There are borderline enlarged mediastinal and hilar lymph nodes largely with calcifications suggestive of granulomatous or reactive related changes similar overall.
== END 2023-03-27 07:07 | disposition home or self-care (01) ==
LOC: RAD 07:06
PROVIDERS: PCP Emergency Medicine Emergency Medical Services; Visit Provider Internal Medicine Pulmonary Disease
DX: R09.89 Other specified symptoms and signs involving the circulatory and respiratory systems (principal); R59.0 Localized enlarged lymph nodes; R91.8 Other nonspecific abnormal finding of lung field
CPT/HCPCS: 71250

== ENCOUNTER → 2023-04-11 08:35 | Outpatient (BNVA) | payer OTHER, SELFPAY | PROVIDERS: PCP Emergency Medicine Emergency Medical Services; Visit Provider Internal Medicine Pulmonary Disease | DX: R91.8 Other nonspecific abnormal finding of lung field (principal); Z86.16 Personal history of COVID-19 | CPT/HCPCS: 99214 ==

== ENCOUNTER 2023-07-23 11:04 | Oncology outpatient (recurring) (ONCR) | payer OTHER, SELFPAY ==
[2023-07-16 13:12] VITALS: BP 136/71; PULSE 96; RESP 20; TEMP 36.6; O2SAT 96
[2023-07-16 13:54] LABS: Basophils # 0.1 10^3/uL (0.0-0.1); Basophils % 0.9 %; Eosinophils # 0.3 10^3/uL (0.0-0.8); Eosinophils % 4.6 %; Hematocrit 46.5 % (37-53); Lymphocytes # 1.4 10^3/uL (0.8-4.8); Lymphocytes % 22.7 %; Mean Corpuscular HGB Conc 32.9 g/dL (30-55); Mean Corpuscular Hemoglobin 29.4 pg (27-33); Mean Corpuscular Volume 89.3 fl (82-101); Mean Platelet Volume 9.8 fL (7.4-10.4); Monocytes # 0.5 10^3/uL (0.2-0.9); Monocytes % 7.3 %; Neutrophils # 4.04 10^3/uL (1.8-7.7); Neutrophils % 63.9 %; Nucleated Red Blood Cells % 0 %; Platelet Count 251 10^3/cmm (157-399); Red Blood Count 5.21 10^6/uL (3.85-5.65); Red Cell Distribution Width 13.8 % (12.1-15.1); White Blood Count 6.33 10^3/uL (3.29-11.43)
[2023-07-16 14:27] LABS: Alanine Aminotransferase 17 U/L (0-41); Albumin Level 4.2 g/dL (3.5-5.2); Alkaline Phosphatase 60 U/L (40-130); Blood Urea Nitrogen 21 mg/dL (8-23); Calcium 9.4 mg/dL (8.5-10.5); Carbon Dioxide 26 mmol/L (22-29); Chloride 101 mmol/L (98-107); Globulin 2.5 g/dL (1.3-4.6); Glucose 152 mg/dL (65-115); Immunoglobulin IGA 283 mg/dL (70-400); Immunoglobulin IGG 803 mg/dL (700-1600); Osmolality Calculated 294 mOsm/kg (285-295); Sodium 139 mmol/L (136-145); Total Bilirubin 0.5 mg/dL (0.15-1.2); Total Protein 6.7 g/dL (6.6-8.7)
[2023-07-16 14:28] LABS: Immunoglobulin IGM < 25 mg/dL (40-230)
[2023-07-16 14:29] LABS: Aspartate Amino Transferase 17 U/L (0-40)
[2023-07-17 12:04] LABS: KAPPA LIGHT CHAIN, FREE, SERUM 24.1 mg/L (3.3-19.4); KAPPA/LAMBDA LIGHT CHAINS FREE 1.34 (0.26-1.65)
[2023-07-17 12:08] LABS: PROTEIN, TOTAL 6.4 g/dL (6.1-8.1)
[2023-07-18 16:09] LABS: ALPHA 1 GLOBULIN 0.2 g/dL (0.2-0.3); ALPHA 2 GLOBULIN 0.7 g/dL (0.5-0.9); BETA 1 GLOBULIN 0.4 g/dL (0.4-0.6); BETA 2 GLOBULIN 0.4 g/dL (0.2-0.5); GAMMA GLOBULIN 0.7 g/dL (0.8-1.7)
[2023-07-24 10:59] LABS: CREATININE, 24 HOUR URINE 1.55 g/24 h (0.50-2.15); PROTEIN, TOTAL, 24 HR UR 140 mg/24 h (<150); Protein/Creatinine Ratio 90 mg/g creat (<100)
[2023-07-25 12:15] LABS: ALBUMIN 100 %; ALPHA-1-GLOBULINS 0 %; ALPHA-2-GLOBULINS 0 %; BETA GLOBULINS 0 %; GAMMA GLOBULINS 0 %
== END 2023-08-14 23:59 | disposition home or self-care (01) ==
PROVIDERS: PCP Emergency Medicine Emergency Medical Services; Visit Provider Internal Medicine Medical Oncology
DX: D47.2 Monoclonal gammopathy (principal); I10 Essential (primary) hypertension; E78.5 Hyperlipidemia, unspecified; N18.9 Chronic kidney disease, unspecified; Z79.899 Other long term (current) drug therapy
CPT/HCPCS: 36415; 80053; 82784; 83883; 84155; 84156; 84165; 84166; 85025; 99214

== ENCOUNTER 2023-12-10 12:53 | Oncology outpatient (recurring) (ONCR) | payer OTHER, SELFPAY ==
[2023-12-03 13:52] LABS: Basophils # 0.1 10^3/uL (0.0-0.1); Basophils % 1.2 %; Eosinophils # 0.3 10^3/uL (0.0-0.8); Eosinophils % 4.9 %; Hematocrit 47.3 % (37-53); Lymphocytes # 1.3 10^3/uL (0.8-4.8); Lymphocytes % 22.1 %; Mean Corpuscular HGB Conc 32.6 g/dL (30-55); Mean Corpuscular Hemoglobin 28.7 pg (27-33); Mean Corpuscular Volume 88.2 fl (82-101); Mean Platelet Volume 10.2 fL (7.4-10.4); Monocytes # 0.5 10^3/uL (0.2-0.9); Monocytes % 8.2 %; Neutrophils # 3.83 10^3/uL (1.8-7.7); Neutrophils % 63.1 %; Nucleated Red Blood Cells % 0 %; Platelet Count 240 10^3/cmm (157-399); Red Blood Count 5.36 10^6/uL (3.85-5.65); Red Cell Distribution Width 13.5 % (12.1-15.1); White Blood Count 6.07 10^3/uL (3.29-11.43)
[2023-12-03 14:13] LABS: Alanine Aminotransferase 19 U/L (0-41); Albumin Level 4.2 g/dL (3.5-5.2); Alkaline Phosphatase 58 U/L (40-130); Anion Gap 14.4 (5-19); Aspartate Amino Transferase 18 U/L (0-40); Blood Urea Nitrogen 22 mg/dL (8-23); Calcium 9.4 mg/dL (8.5-10.5); Carbon Dioxide 26 mmol/L (22-29); Chloride 106 mmol/L (98-107); Globulin 2.6 g/dL (1.3-4.6); Glucose 108 mg/dL (65-115); Immunoglobulin IGA 291 mg/dL (70-400); Immunoglobulin IGG 775 mg/dL (700-1600); Osmolality Calculated 298 mOsm/kg (285-295); Potassium 4.4 mmol/L (3.5-5.1); Sodium 142 mmol/L (136-145); Total Bilirubin 0.6 mg/dL (0.15-1.2); Total Protein 6.8 g/dL (6.6-8.7)
[2023-12-03 14:17] LABS: Immunoglobulin IGM < 25 mg/dL (40-230)
[2023-12-05 02:04] LABS: PROTEIN, TOTAL 6.6 g/dL (6.1-8.1)
[2023-12-05 12:03] LABS: ALPHA 1 GLOBULIN 0.3 g/dL (0.2-0.3); ALPHA 2 GLOBULIN 0.7 g/dL (0.5-0.9); BETA 1 GLOBULIN 0.5 g/dL (0.4-0.6); BETA 2 GLOBULIN 0.4 g/dL (0.2-0.5); GAMMA GLOBULIN 0.7 g/dL (0.8-1.7)
[2023-12-05 14:39] LABS: KAPPA LIGHT CHAIN, FREE, SERUM 24.9 mg/L (3.3-19.4); KAPPA/LAMBDA LIGHT CHAINS FREE 1.43 (0.26-1.65); LAMBDA LIGHT CHAIN, FREE, SERU 17.4 mg/L (5.7-26.3)
== END 2023-12-14 23:59 | disposition home or self-care (01) ==
PROVIDERS: Nurse Practitioner Family; PCP Emergency Medicine Emergency Medical Services; Visit Provider Internal Medicine Medical Oncology
DX: D47.2 Monoclonal gammopathy (principal)
CPT/HCPCS: 36415; 80053; 82784; 83883; 84155; 84156; 84165; 85025; 86335; 99213

== ENCOUNTER → 2024-01-09 08:33 | Outpatient (BNVA) | payer OTHER, SELFPAY | PROVIDERS: PCP Emergency Medicine Emergency Medical Services; Visit Provider Internal Medicine Pulmonary Disease | DX: R09.89 Other specified symptoms and signs involving the circulatory and respiratory systems (principal); R20.0 Anesthesia of skin | CPT/HCPCS: 99213 ==

== ENCOUNTER 2024-08-18 09:01 | Outpatient (CLI) | payer OTHER, SELFPAY ==
--- NOTE | 2024-08-18 09:02 | MR_ITS ---
WS: [id number] MRI LUMBAR SPINE NONCONTRAST HISTORY: LOW BACK PAIN W/LEFT LEG RADICULOPATHY COMPARISON: None available. TECHNIQUE: Sagittal and axial multisequence imaging is submitted. 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 Osteophytes and disc prot rusions. Component of cervical stenosis is present at multiple levels. Focal disc protrusion at T2-3 contacts the ventral thoracic cord. There is an additional smaller disc protrusion at T6-7. S-shaped curvature lumbar spine. Disc spaces are all significantly narrowed. Osteophytic ridging arou nd the vertebral bodies. There is mild marrow edema in the T11 and L1 vertebral bodies greatest on th e LEFT. Conus terminates normally at L1-2 disc level. T11-12 and T12-L1: Central disc protrusions and osteophytic ridging. Mild to moderate central with bi lateral foraminal stenosis. There is significant foraminal stenosis, greatest on the RIGHT at T11-12 due to disc protrusions and osteophytes. Asymmetric disc bulging at T12-L1 encroaching upon the ventr al thecal sac with moderate to severe RIGHT foraminal stenosis. L1-L2: Diffuse osteophytic ridging and marked annular disc bulging with ligamentum flavum and facet a rthritis. Moderate to severe central with bilateral subarticular recess and foraminal stenosis. Great er stenosis LEFT foramen. L2-L3: Diffuse marked annular disc bulging with osteophytic ridging. Ligamentum flavum and facet arth ritis. Severe central, bilateral subarticular recess and foraminal stenosis. Greater foraminal stenos is on the LEFT. L3-L4: Diffuse annular disc bulging with osteophytic ridging. Encroachment upon the ventral thecal sa c, subarticular recesses and foramina. Moderate central and subarticular recess stenosis. Moderate to severe RIGHT foraminal stenosis and mild LEFT foraminal stenosis. L4-L5: Diffuse annular disc bulging with osteophytic ridging and facet arthritis. Central disc protru cathy. Central, bilateral subarticular recess and severe foraminal stenosis, RIGHT greater than LEFT. L5-S1: Diffuse annular disc bulging encroaching upon the ventral thecal sac. Mild central stenosis. M oderate to severe bilateral foraminal stenosis. Paravertebral soft tissues are negative. MR/MR lumbar spine wo con* [id number] IMPRESSION: 1. Advanced central, foraminal and subarticular recess stenoses at multiple di sc levels. Advanced spondylosis. Disc osteophyte complexes encroaching upon the ventral thecal sac, subarticular recesses and foramina at multiple levels. 2. T11-12 and T12-L1: Osteophytic ridging with asymmetric disc bulging and fac et arthritis resulting in central, subarticular recess and foraminal stenosis. Moderate to severe RIGHT foraminal stenosis at T11-12 and T12-L1. 3. L1-2: Moderate to severe central with bilateral subarticular recess and for aminal stenosis, LEFT greater than RIGHT. 4. L2-3: Severe central, bilateral subarticular recess and foraminal stenosis, LEFT greater than RIGHT. 5. L3-4: Moderate central and subarticular recess stenosis. Moderate to severe RIGHT and mild LEFT foraminal stenosis. 6. L4-5: Severe bilateral foraminal stenosis with moderate central and bilater al subarticular recess stenosis. 7. L5-S1: Moderate to severe bilateral foraminal stenosis. Mild central stenos is. 8. Small amount of marrow edema in the LEFT lateral T12 and L1 vertebral millie s. This may be reactive marrow edema. No fracture or loss of vertebral body hei ght is identified.
== END 2024-08-18 09:02 | disposition home or self-care (01) ==
LOC: RAD 09:02
PROVIDERS: PCP Nurse Practitioner; Visit Provider Nurse Practitioner
DX: M51.24 Other intervertebral disc displacement, thoracic region (principal); M99.62 Osseous and subluxation stenosis of intervertebral foramina of thoracic region; M25.78 Osteophyte, vertebrae; M51.360 Other intervertebral disc degeneration, lumbar region with discogenic back pain only; M99.61 Osseous and subluxation stenosis of intervertebral foramina of cervical region; M99.64 Osseous and subluxation stenosis of intervertebral foramina of sacral region; M51.370 Other intervertebral disc degeneration, lumbosacral region with discogenic back pain only
CPT/HCPCS: 72148

== ENCOUNTER 2024-08-24 09:09 | Outpatient (CLI) | payer OTHER, SELFPAY ==
[2024-08-24 09:42] LABS: Basophils % 0.7 %; Eosinophils # 0.3 10^3/uL (0.0-0.8); Eosinophils % 6.1 %; Hematocrit 50.3 % (37-53); Lymphocytes # 1.6 10^3/uL (0.8-4.8); Mean Corpuscular HGB Conc 31.6 g/dL (30-55); Mean Corpuscular Hemoglobin 28.5 pg (27-33); Mean Corpuscular Volume 90.1 fl (82-101); Mean Platelet Volume 10.1 fL (7.4-10.4); Monocytes # 0.5 10^3/uL (0.2-0.9); Monocytes % 8.4 %; Neutrophils # 3.14 10^3/uL (1.8-7.7); Neutrophils % 56.1 %; Nucleated Red Blood Cells % 0 %; Platelet Count 226 10^3/cmm (157-399); Red Blood Count 5.58 10^6/uL (3.85-5.65); Red Cell Distribution Width 14.2 % (12.1-15.1)
[2024-08-24 10:02] LABS: Albumin Level 4.4 g/dL (3.5-5.2); Anion Gap 13.6 (5-19); Blood Urea Nitrogen 24 mg/dL (8-23); Calcium 9.7 mg/dL (8.5-10.5); Calcium 9.8 mg/dL (8.5-10.5); Carbon Dioxide 29 mmol/L (22-29); Chloride 104 mmol/L (98-107); Glucose 106 mg/dL (65-115); Phosphorus 3.2 mg/dL (2.5-4.5); Potassium 4.6 mmol/L (3.5-5.1); Sodium 142 mmol/L (136-145)
[2024-08-24 10:06] LABS: Parathyroid Hormone 76.2 pg/mL (15-65)
[2024-08-24 10:28] LABS: Creatinine Urine, Random 151 mg/dL (39-259); Microalbum Creatinine Ratio Ur 7 mg/dL (0-20); Microalbumin Random Urine 1 ug/dL (0-20)
== END 2024-08-24 09:10 | disposition home or self-care (01) ==
LOC: LAB 09:12
PROVIDERS: PCP Nurse Practitioner; Visit Provider Internal Medicine Nephrology
DX: N18.2 Chronic kidney disease, stage 2 (mild) (principal)
CPT/HCPCS: 36415; 80069; 82044; 82310; 83970; 85025

== ENCOUNTER → 2024-12-28 09:38 | Outpatient (BNVA) | payer OTHER, SELFPAY | PROVIDERS: PCP Nurse Practitioner; Referring Provider Nurse Practitioner; Visit Provider Anesthesiology Pain Medicine | DX: M54.9 Dorsalgia, unspecified (principal); M48.062 Spinal stenosis, lumbar region with neurogenic claudication; M47.816 Spondylosis without myelopathy or radiculopathy, lumbar region | CPT/HCPCS: 99204 ==

== ENCOUNTER → 2025-01-05 08:35 | Outpatient (BNVA) | payer OTHER, SELFPAY | PROVIDERS: PCP Nurse Practitioner; Visit Provider Anesthesiology Pain Medicine | DX: M54.16 Radiculopathy, lumbar region (principal); M48.062 Spinal stenosis, lumbar region with neurogenic claudication | CPT/HCPCS: 64483; 64484; J1100; J3490; J9999 ==

== ENCOUNTER → 2025-01-24 08:22 | Outpatient (BNVA) | payer OTHER, SELFPAY | PROVIDERS: PCP Nurse Practitioner; Visit Provider Anesthesiology Pain Medicine | DX: M48.062 Spinal stenosis, lumbar region with neurogenic claudication (principal); M54.9 Dorsalgia, unspecified; M47.816 Spondylosis without myelopathy or radiculopathy, lumbar region | CPT/HCPCS: 99214 ==

== ENCOUNTER 2025-08-24 10:10 | Outpatient (CLI) | payer OTHER, SELFPAY ==
[2025-08-24 10:54] LABS: Hematocrit 49.4 % (37-53); Hemoglobin 15.80 g/dL (11.27-16.99); Mean Corpuscular HGB Conc 32.0 g/dL (30-55); Mean Corpuscular Hemoglobin 28.6 pg (27-33); Mean Corpuscular Volume 89.5 fl (82-101); Nucleated Red Blood Cells % 0 %; Platelet Count 219 10^3/cmm (157-399); Red Blood Count 5.52 10^6/uL (3.85-5.65); White Blood Count 5.47 10^3/uL (3.29-11.43)
[2025-08-24 11:27] LABS: Calcium 9.8 mg/dL (8.5-10.5)
[2025-08-24 11:28] LABS: Creatinine Urine, Random 124 mg/dL (39-259); Microalbum Creatinine Ratio Ur 8 mg/dL (0-20)
[2025-08-24 11:47] LABS: Albumin Level 4.4 g/dL (3.5-5.2); Anion Gap 15.5 (5-19); Blood Urea Nitrogen 27 mg/dL (8-23); Calcium 9.6 mg/dL (8.5-10.5); Carbon Dioxide 26 mmol/L (22-29); Chloride 104 mmol/L (98-107); Glucose 101 mg/dL (65-115); Potassium 4.5 mmol/L (3.5-5.1); Sodium 141 mmol/L (136-145)
== END 2025-08-24 10:11 | disposition home or self-care (01) ==
LOC: LAB 10:14
PROVIDERS: PCP Nurse Practitioner; Visit Provider Registered Nurse
DX: N18.32 Chronic kidney disease, stage 3b (principal)
CPT/HCPCS: 36415; 80069; 82044; 82306; 82310; 83970; 85025